=== PATIENT | female | born 2000 | race Caucasian/White ===

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

== ENCOUNTER 2022-04-09 15:27 | Emergency (ER) | payer MEDICAID, SELFPAY ==
[2022-04-09 15:36] VITALS: BP 127/62; PULSE 83; RESP 18; TEMP 36.2; O2SAT 100
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
[2022-04-09] MEDS: Acetaminophen 325 MG TAB 650 MG PO (16:28)
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
== END 2022-04-09 17:05 | disposition home or self-care (01) ==
PROVIDERS: Emergency Provider Registered Nurse Emergency
DX: S43.491A Other sprain of right shoulder joint, initial encounter (principal); V43.62XA Car passenger injured in collision with other type car in traffic accident, initial encounter
CPT/HCPCS: 81025; 99283; 73030

== ENCOUNTER 2022-05-28 08:37 | Emergency (ER) | payer MEDICAID, SELFPAY ==
--- NOTE | 2022-05-28 08:45 | ED.GENADUL_ITS ---
Discharge Plan Disposition Patient Disposition: HOME Condition: Stable Discharge Details Clinical Impression: Nausea and vomiting Primary Care Provider: None,None ED Provider: Ethel Rojo Home Meds and New Rx's Prescriptions: New metoclopramide HCl [Reglan] 10 mg tablet 10 mg PO Q6H PRN (Reason: nausea and vomiting) Qty: 7 1RF Discontinued ondansetron 4 mg tablet,disintegrating 4 mg PO Q6H PRN (Reason: nausea and vomiting) Qty: 10 0RF Discharge Instructions Instructions: Acute Nausea and Vomiting (ED) Additional Instructions: Your lab work today is reassuring and shows no evidence of acute concerning or significant findings. You will be notified if your urine sample is positive for a urinary tract infection. A prescription for Reglan has been sent electronically to your pharmacy to take as needed for nausea and vomiting. You were also given this medication upon discharge from the emergency department. Follow-up with your primary care doctor in 1 week. Return to the emergency department with any worsening or new concerning symptoms such as fever, persistent vomiting, persistent abdominal pain or any other concerns. 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 Admits to 1 episode of diarrhea. Admits to dysuria this morning. Denies fever or abdominal pain at this time. Vitals within normal limits. Patient appears comfortable and nontoxic. Urine test negative. Her abdomen is soft and nontender. Discussed with patient that we can place an IV and obtain screening labs but she declines. Patient is requesting only oral antiemetic. Discussed the risks of and disability due to missed or incomplete diagnoses and patient understands and demonstrates capacity make decisions. Will obtain urinalysis and give a dose of oral Phenergan and reassess with PO challenge. 0945 -- patient is endorsing persistent nausea and epigastric discomfort. She would like to proceed with an IV and labs at this time. We will give bolus IVF, IV Reglan, Pepcid, GI cocktail, screening labs and reassess. 1100 --labs reviewed. Anion gap 13.7. Repeat BMP obtained which improved and anion gap after IV fluids. Potassium 3.3 which was repleted. Urinalysis notes 5-10 WBCs with many epithelial cells with negative nitrite but with small leukocyte esterase and moderate bacteria. Patient was able to provide another urine sample but did not want to wait for results and sample again, appears contaminated but with no trace leukocyte esterase, 3-5 WBCs and unable to send culture. We will send with Phenergan p.o. as needed. She denies any abdominal pain. Advised to follow-up with her primary care doctor for reevaluation and to return here immediately if she develops any persistent vomiting or pain for re- evaluation and consideration for imaging if indicated. Medical Records Medical records reviewed: Yes I reviewed the patient's medical records. Lab Data Lab results reviewed: Yes I reviewed the patient's lab results. Labs: Laboratory Tests Range/Units 05/28/22 05/28/22 05/28/22 08:50 09:50 09:50 WBC (4.4-10.8) 10^3/uL 7.21 RBC (3.93-5.22) 10^6/uL 4.57 Hgb (11.2-15.7) g/dL 13.6 Hct (36.0-46.0) % 37.8 MCV (80-95) fL 83 MCH (27.0-33.0) pg 29.8 MCHC (32.0-36.0) % 36.0 RDW (11.7-14.6) % 11.8 Plt Count (130-400) 10^3/uL 272 MPV (8.0-11.0) fL 9.4 Immature Gran % 0.1 Neutrophils % 59.4 Lymphocytes % 31.6 Monocytes % 8.5 Eosinophils % 0.1 Basophils % 0.3 Nucleated RBC % (0.0-0.3) % 0.0 Absolute Neutrophils (1.2-6.7) 10^3/uL 4.28 Absolute Lymphocytes (1.2-3.4) 10^3/uL 2.28 Absolute Monocytes (0.1-0.8) 10^3/uL 0.61 Absolute Eosinophils (0.0-0.7) 10^3/uL 0.01 Absolute Basophils (0.0-0.2) 10^3/uL 0.02 Sodium (136-145) mmol/L 133 L Potassium (3.5-5.1) mmol/L 3.6 Chloride (98-107) mmol/L 95 L Carbon Dioxide (21.0-32.0) mmol/L 24.3 Anion Gap (3-11) mmol/L 13.7 H BUN (7-18) mg/dL 20 H Creatinine (0.55-1.02) mg/dL 0.8 Estimated GFR/1.73 m2 (mL/min/1.73m2) >= 60.00 Glucose (74-106) mg/dL 85 Calcium (8.5-10.1) mg/dL 9.3 Total Bilirubin (0.2-1.0) mg/dL 0.9 AST (15-37) U/L 23 ALT (14-59) U/L 27 Alkaline Phosphatase (46-116) U/L 73 Total Protein (6.4-8.2) g/dL 8.0 Albumin (3.4-5.0) g/dL 4.5 Lipase (73-393) U/L 85 Urine Color (Yellow) Yellow Urine Clarity (Clear) Sl Cloudy Urine pH (5-8) 6.0 Ur Specific [place] (1.005-1.025) >= 1.030 H Urine Protein (Negative) mg/dL Negative Urine Ketones (Negative) mg/dL 15 H Urine Blood (Negative) Negative Urine Nitrite (Negative) Negative Urine Bilirubin (Negative) Negative Urine Urobilinogen (Up TO 0.2) EU/dL 0.2 Ur Leukocyte Esterase (Negative) Small H Urine RBC (0-2) HPF 0-2 Urine WBC (0-5) HPF 5-10 Ur Epithelial Cells (Negative) HPF Many Urine Crystals (Negative) HPF Negative Urine Bacteria (Negative) HPF Moderate Urine Casts (Negative) LPF Negative Urine Mucus (Negative) Trace Ur Culture Indicated? No/Sq. Contamination Urine Glucose (Negative) mg/dL Negative Range/Units 05/28/22 05/28/22 10:58 11:35 WBC (4.4-10.8) 10^3/uL RBC (3.93-5.22) 10^6/uL Hgb (11.2-15.7) g/dL Hct (36.0-46.0) % MCV (80-95) fL MCH (27.0-33.0) pg MCHC (32.0-36.0) % RDW (11.7-14.6) % Plt Count (130-400) 10^3/uL MPV (8.0-11.0) fL Immature Gran % Neutrophils % Lymphocytes % Monocytes % Eosinophils % Basophils % Nucleated RBC % (0.0-0.3) % Absolute Neutrophils (1.2-6.7) 10^3/uL Absolute Lymphocytes (1.2-3.4) 10^3/uL Absolute Monocytes (0.1-0.8) 10^3/uL Absolute Eosinophils (0.0-0.7) 10^3/uL Absolute Basophils (0.0-0.2) 10^3/uL Sodium (136-145) mmol/L 134 L Potassium (3.5-5.1) mmol/L 3.3 L Chloride (98-107) mmol/L 98 Carbon Dioxide (21.0-32.0) mmol/L 24.4 Anion Gap (3-11) mmol/L 11.6 H BUN (7-18) mg/dL 19 H Creatinine (0.55-1.02) mg/dL 0.8 Estimated GFR/1.73 m2 (mL/min/1.73m2) >= 60.00 Glucose (74-106) mg/dL 86 Calcium (8.5-10.1) mg/dL 8.4 L Total Bilirubin (0.2-1.0) mg/dL AST (15-37) U/L ALT (14-59) U/L Alkaline Phosphatase (46-116) U/L Total Protein (6.4-8.2) g/dL Albumin (3.4-5.0) g/dL Lipase (73-393) U/L Urine Color (Yellow) Yellow Urine Clarity (Clear) Sl Cloudy Urine pH (5-8) 6.0 Ur Specific [place] (1.005-1.025) 1.015 Urine Protein (Negative) mg/dL Negative Urine Ketones (Negative) mg/dL Trace H Urine Blood (Negative) Negative Urine Nitrite (Negative) Negative Urine Bilirubin (Negative) Negative Urine Urobilinogen (Up TO 0.2) EU/dL 0.2 Ur Leukocyte Esterase (Negative) Trace H Urine RBC (0-2) HPF 0-2 Urine WBC (0-5) HPF 3-5 Ur Epithelial Cells (Negative) HPF Many Urine Crystals (Negative) HPF Negative Urine Bacteria (Negative) HPF Few Urine Casts (Negative) LPF Negative Urine Mucus (Negative) Negative Ur Culture Indicated? No/Sq. Contamination Urine Glucose (Negative) mg/dL Negative HPI General Mode of arrival: ambulatory . Date/Time Provider Initiated Documentation: 05/28/22 08:43 . Limitations to Documentation: no limitations . Information obtained by: patient . HPI Narrative: Patient is a 21-year-old female with history of methadone dependence, and anxiety who presents for nausea and vomiting for the past 3 days after eating eggs and [place] toast. Patient states she initially vomited food but has been vomiting mainly bile to 5 times daily since then. She admits to diarrhea a few days ago but has not had a bowel movement since then. She does admit to dysuria this morning but denies any hematuria, frequency or urgency. She admits to occasional abdominal pain but denies any at present. She denies fever, chest pain, shortness of breath, recent antibiotics, recent travel or recent known sick contacts. She states she last took her methadone this morning. She states she had previously been on Suboxone but switched to methadone a couple months ago. She denies any history of IV drug abuse. Related Data Home Medications Medication Instructions Recorded Confirmed metoclopramide HCl 10 mg tablet 10 mg PO Q6H PRN nausea and 05/28/22 (Reglan) vomiting #7 tabs Previous Rx's Medication Instructions Recorded metoclopramide HCl 10 mg tablet 10 mg PO Q6H PRN nausea and 05/28/22 (Reglan) vomiting #7 tabs Allergies Allergy/AdvReac Type Severity Reaction Status Date / Time No Known Allergies Allergy Unverified 05/28/22 08:55 General Stated Complaint: Nausea/Vomit/Diar FABIÁN: 4 Review of Systems All systems reviewed & are unremarkable except as noted in HPI and below Constitutional Constitutional: Denies chills, Denies excessive sweating, Denies fatigue, Denies fever(s), Denies weakness and Denies weight loss Eyes Eyes: Reports system reviewed and no additional complaints, except as documented and Denies blurry vision ENT Ears, Nose, Mouth, and Throat: Denies vertigo, Denies dizziness, Denies otalgia, Denies nasal congestion, Denies sore throat and Denies throat swelling Cardiovascular Cardiovascular: Denies chest pain, Denies syncope, Denies rapid heart rate and Denies dyspnea Respiratory Respiratory: Denies chest congestion, Denies cough, Denies pain on inspiration and Denies dyspnea Gastrointestinal Gastrointestinal: Denies abdominal pain, Reports diarrhea (one episode a few days ago), Reports nausea and Reports vomiting Genitourinary Genitourinary: Denies hematuria, Denies dysuria and Denies flank pain Musculoskeletal Musculoskeletal: Denies back pain and Denies joint swelling Integumentary/Breasts Skin/Breast: Denies lesions and Denies rash Neurologic Neurologic: Denies behavioral changes, Denies confusion, Denies vertigo, Denies dizziness, Denies syncope, Denies localized weakness and Denies weakness Psychiatric Psychiatric: Denies behavioral changes, Denies confusion and Denies depression Endocrine Endocrine: Denies excessive sweating and Denies fatigue Hematologic/Lymphatic Hematologic/Lymphatic: Denies easy bruising and Denies lymphadenopathy Allergic/Immunologic Allergic/Immunologic: Denies throat swelling PFSH All Active Problems (Updated 05/28/22 @ 11:47 by Ethel Rojo DO) Nausea and vomiting (Acute) Acute streptococcal pharyngitis (Acute) Acute vomiting (Acute) Cephalgia (Acute) Myalgia (Acute) Cyclical vomiting with nausea (Acute) Hypokalemia (Acute) Anxiety (Chronic) Medical History (Updated 05/28/22 @ 11:47 by Ethel Rojo DO) Anxiety Narcotic abuse in remission Surgical History No significant past surgical history Social History Smoking/Tobacco Use Status: Current every day Tobacco Type: e-cigarettes Smoking risk assessment performed?: Yes Alcohol Intake: current Alcohol Intake frequency: holidays/special occasions only Alcohol type: beer Drug use: Daily Substance use type: marijuana and other Details: vapes THC , gets her own methadone and self medicates , she denies other street drugs Do you feel safe at home: Yes Do you feel safe in your relationship?: Yes History History 1 Para 1 Hx # Term Pregnancies Multiple births Hx # Pregnancies Ectopic pregnancies AB induced Hx Number of Living Children AB spontaneous Exam Const General: cooperative and healthy appearing Orientation: alert, awake and oriented x3 HENMT Head: normal to inspection Ears: hearing grossly normal bilaterally and external ears normal General nose exam: external nose normal Face and sinus: normal facial exam Mouth: oral mucosae normal Teeth and gingiva: dentition normal Throat: posterior oropharynx normal Eyes General: appearance normal, both eyes and all related structures Eyelids: eyelids normal Pupils: PERRL EOM: EOM intact bilaterally Neck Neck: normal visual inspection Lymphatic: no lymphadenopathy noted Chest Chest: normal inspection of the chest Resp Effort & Inspection: normal respiratory effort and able to speak in complete s entences Auscultation: clear to auscultation bilaterally Cardio Rate: regular rate Rhythm: regular rhythm GI Inspection: normal to inspection Palpation: soft, not firm, no guarding, no hepatosplenomegaly, no masses and nontender Auscultation: normal bowel sounds Back/Spine/Pelvis Back: no CVA tenderness Skin General skin exam: no rashes or lesions noted Neuro General: patient alert and patient awake Cognition: normal cognition Speech: speech normal Gait: normal gait Motor: muscle tone normal throughout Sensory Exam: no sensory deficits noted Extrem General: normal to inspection, full ROM and capillary refill normal Psych Appearance: grossly normal Mental Status: mental status grossly normal Speech and Movement: speech and movement normal Affect: normal affect Thought Process: normal
[2022-05-28 08:51] VITALS: BP 128/87; PULSE 77; RESP 18; TEMP 36.7; O2SAT 98
[2022-05-28] MEDS: Promethazine 25 MG TAB PO (09:10)
[2022-05-28 09:35] LABS: Bilirubin Negative (Negative); Blood Negative (Negative); Clarity Sl Cloudy (Clear); Glucose Negative (Negative); Ketones 15 mg/dL (Negative); Leukocyte Esterase Small (Negative); Nitrite Negative (Negative); Specific Gravity >= 1.030 (1.005-1.025); Urobilinogen 0.2 EU/dL (Up TO 0.2)
[2022-05-28 09:51] LABS: Epithelial Cells Many HPF (Negative); RBC 0-2 HPF (0-2)
[2022-05-28 09:52] LABS: Bacteria Moderate HPF (Negative); C & S Indicated? No/Sq. Contamination; Casts Negative LPF (Negative); Crystals Negative HPF (Negative); Mucus Trace (Negative)
[2022-05-28 10:00] LABS: Abs Immature Grans 0.01 10^3/uL (0.0-0.06); Absolute Basophil Count 0.02 10^3/uL (0.0-0.2); Absolute Eosinophil Count 0.01 10^3/uL (0.0-0.7); Absolute Lymphocyte Count 2.28 10^3/uL (1.2-3.4); Absolute Monocyte Count 0.61 10^3/uL (0.1-0.8); Absolute Neutrophil Count 4.28 10^3/uL (1.2-6.7); Basophils % 0.3; Eosinophils % 0.1; HCT 37.8 % (36.0-46.0); HGB 13.6 g/dL (11.2-15.7); Immature Grans % 0.1; Lymphocytes % 31.6; MCH 29.8 pg (27.0-33.0); MCV 83 fL (80-95); MPV 9.4 fL (8.0-11.0); Monocytes % 8.5; Neutrophils % 59.4; Platelet Count 272 10^3/uL (130-400); RBC 4.57 10^6/uL (3.93-5.22); RDW 11.8 % (11.7-14.6); RDW-SD 35.3 fL; WBC 7.21 10^3/uL (4.4-10.8)
[2022-05-28] MEDS: Famotidine 20 MG/2 ML VIAL IVP (10:00)
[2022-05-28] MEDS: Metoclopramide 10 MG/2 ML VIAL IVP (10:00)
[2022-05-28] MEDS: Normal Saline 1,000 ML 1000 ML IV (10:00)
[2022-05-28 10:17] LABS: ALT 27 U/L (14-59); AST 23 U/L (15-37); Albumin 4.5 g/dL (3.4-5.0); Alkaline Phosphatase 73 U/L (46-116); Anion Gap 13.7 mmol/L (3-11); BUN 20 mg/dL (7-18); Bilirubin, Total 0.9 mg/dL (0.2-1.0); CO2 24.3 mmol/L (21.0-32.0); CREATININE 0.8 mg/dL (0.55-1.02); Calcium 9.3 mg/dL (8.5-10.1); Chloride 95 mmol/L (98-107); Glucose 85 mg/dL (74-106); Lipase 85 U/L (73-393); Potassium 3.6 mmol/L (3.5-5.1); Sodium 133 mmol/L (136-145)
[2022-05-28 11:12] LABS: Anion Gap 11.6 mmol/L (3-11); BUN 19 mg/dL (7-18); CO2 24.4 mmol/L (21.0-32.0); CREATININE 0.8 mg/dL (0.55-1.02); Calcium 8.4 mg/dL (8.5-10.1); Chloride 98 mmol/L (98-107); Glucose 86 mg/dL (74-106); Potassium 3.3 mmol/L (3.5-5.1); Sodium 134 mmol/L (136-145)
[2022-05-28] MEDS: Potassium Chloride 20 MEQ TABCR PO (11:35)
[2022-05-28 11:51] LABS: Bilirubin Negative (Negative); Blood Negative (Negative); Clarity Sl Cloudy (Clear); Glucose Negative (Negative); Ketones Trace mg/dL (Negative); Leukocyte Esterase Trace (Negative); Nitrite Negative (Negative); Specific Gravity 1.015 (1.005-1.025); Urobilinogen 0.2 EU/dL (Up TO 0.2)
[2022-05-28] MEDS: Metoclopramide 10 MG TAB 20 MG PO (11:57)
[2022-05-28 12:01] LABS: Bacteria Few HPF (Negative); C & S Indicated? No/Sq. Contamination; Casts Negative LPF (Negative); Crystals Negative HPF (Negative); Epithelial Cells Many HPF (Negative); Mucus Negative (Negative); RBC 0-2 HPF (0-2)
== END 2022-05-28 11:57 | disposition home or self-care (01) ==
PROVIDERS: Emergency Provider Physician Assistant
DX: R11.2 Nausea with vomiting, unspecified (principal); R19.7 Diarrhea, unspecified; R30.0 Dysuria; R10.13 Epigastric pain; R82.998 Other abnormal findings in urine; F17.290 Nicotine dependence, other tobacco product, uncomplicated
CPT/HCPCS: 36415; 80048; 80053; 81025; 83690; 96361; 96374; 96375; 99284; 81003; 81015; 85025; J2765

== ENCOUNTER 2022-05-29 15:13 | Outpatient (REF) | payer MEDICAID, SELFPAY | END 2022-05-29 15:14 | disposition home or self-care (01) | LOC: LBN 15:13 | PROVIDERS: Visit Provider Nurse Practitioner Family | DX: R10.9 Unspecified abdominal pain (principal) | CPT/HCPCS: 87491; 87591; 87086 ==

== ENCOUNTER 2022-10-22 10:50 | Emergency (ER) | payer MEDICAID, SELFPAY ==
[2022-10-22] VITALS (10 sets, daily range): BP systolic 136–159; BP diastolic 75–104; PULSE 63–87; RESP 16–18; TEMP 36.7; O2SAT 96–100
--- NOTE | 2022-10-22 11:18 | ED.GENADUL_ITS ---
Discharge Plan Disposition Patient Disposition: Home Condition: Stable Discharge Details Clinical Impression: Nausea and vomiting, Anxiety, Acute hypokalemia Primary Care Provider: None,None ED Provider: Kennedy Roberts Home Meds and New Rx's Prescriptions: Continued metoclopramide HCl [Reglan] 10 mg tablet 10 mg PO Q6H PRN (Reason: nausea and vomiting) Qty: 20 1RF Discharge Instructions Instructions: Metoclopramide (By mouth), Hypokalemia (ED), Acute Nausea and Vomiting (ED), Anxiety (ED) Discharge Data Discharge Date/Time-TO BE ENTERED AT DEPARTURE: 10/22/22 16:35 Medical Decision Making 1120 ---22 year-old female with history of opioid use disorder, on methadone, here with nausea and vomiting and associated anxiety. On chart review, patient has had multiple ED visits for nausea and vomiting. There has been concern for cannabinoid hyperemesis syndrome in the past. Patient continues to use marijuana regularly. She appears dehydrated. I will give IV fluid bolus. Consider biliary disease and will check LFTs as well as electrolyte abnormalities. I am concerned about cannabinoid hyperemesis syndrome. I did explain this concern to the patient. 1600 --labs reviewed and hypokalemia noted. Patient received potassium chloride 20 mill equivalents IV and 20 mill equivalents by mouth. Patient was given Zofran and also treated with capsaicin. Sign Out No HPI General Mode of arrival: ambulatory . Date/Time Provider Initiated Documentation: 10/22/22 10:59 . Limitations to Documentation: no limitations . Information obtained by: patient . HPI Narrative: 22-year-old female with history of opioid use disorder, on methadone, here with chief complaint of vomiting. Patient notes nausea and vomiting for the past 3 days. Symptoms seem to improve yesterday and then worsened today. Nausea is now severe. She does not notes she is not able to keep anything down. No associated abdominal pain. Related Data Home Medications Medication Instructions Recorded Confirmed metoclopramide HCl 10 mg tablet 10 mg PO Q6H PRN nausea and 10/22/22 (Reglan) vomiting #20 tabs Previous Rx's Medication Instructions Recorded metoclopramide HCl 10 mg tablet 10 mg PO Q6H PRN nausea and 10/22/22 (Reglan) vomiting #20 tabs Allergies Allergy/AdvReac Type Severity Reaction Status Date / Time No Known Allergies Allergy Unverified 05/28/22 08:55 General Stated Complaint: Nausea/Vomit/Diar FABIÁN: 3 PFSH All Active Problems (Updated 10/22/22 @ 16:28 by Kennedy Roberts MD) Nausea and vomiting (Acute) Anxiety (Chronic) Acute hypokalemia (Acute) Acute streptococcal pharyngitis (Acute) Acute vomiting (Acute) Cephalgia (Acute) Myalgia (Acute) Cyclical vomiting with nausea (Acute) Hypokalemia (Acute) Anxiety (Chronic) Medical History (Updated 10/22/22 @ 16:28 by Kennedy Roberts MD) Anxiety Narcotic abuse in remission Surgical History No significant past surgical history Social History Smoking/Tobacco Use Status: Current every day Tobacco Type: e-cigarettes Smoking risk assessment performed?: Yes Alcohol Intake: current Alcohol Intake frequency: holidays/special occasions only Alcohol type: beer Drug use: Daily Substance use type: marijuana and other Details: vapes THC , gets her own methadone and self medicates , she denies other street drugs Do you feel safe at home: Yes Do you feel safe in your relationship?: Yes History History 1 Para 1 Hx # Term Pregnancies Multiple births Hx # Pregnancies Ectopic pregnancies AB induced Hx Number of Living Children AB spontaneous Course Vital Signs Vital signs: Vital Signs Temperature 36.7 C 10/22/22 10:57 Pulse 67 10/22/22 10:57 Respiratory Rate 18 10/22/22 10:57 Blood Pressure 151/104 H 10/22/22 10:57 Pulse Oximetry 100 10/22/22 10:57 Temperature 36.7 C 10/22/22 10:57 Temperature Source Oral 10/22/22 10:57 Pulse 67 10/22/22 10:57 Respiratory Rate 18 10/22/22 10:57 Blood Pressure 151/104 H 10/22/22 10:57 Blood Pressure Position Sitting 10/22/22 10:57 Pulse Oximetry 100 10/22/22 10:57 Oxygen Delivery Method Room Air 10/22/22 10:57 Oxygen Flow Rate 0 10/22/22 10:57
[2022-10-22] MEDS: Lactated Ringers 1,000 ML 1000 ML IV (11:33)
[2022-10-22] MEDS: LORazepam 2 MG/ML VIAL 0.5 MG IVP (11:33)
[2022-10-22] MEDS: Metoclopramide 10 MG/2 ML VIAL IVP (11:34)
[2022-10-22 11:43] LABS: Abs Immature Grans 0.02 10^3/uL (0.0-0.06); Absolute Basophil Count 0.05 10^3/uL (0.0-0.2); Absolute Eosinophil Count 0.09 10^3/uL (0.0-0.7); Absolute Neutrophil Count 3.99 10^3/uL (1.2-6.7); Basophils % 0.6; Eosinophils % 1.1; HGB 13.7 g/dL (11.2-15.7); Immature Grans % 0.2; Lymphocytes % 41.2; MCH 27.8 pg (27.0-33.0); MCHC 32.6 % (32.0-36.0); MCV 85 fL (80-95); MPV 9.5 fL (8.0-11.0); Monocytes % 8.5; Neutrophils % 48.4; Platelet Count 417 10^3/uL (130-400); RBC 4.92 10^6/uL (3.93-5.22); RDW 12.4 % (11.7-14.6); RDW-SD 38.6 fL; WBC 8.25 10^3/uL (4.4-10.8)
[2022-10-22 11:55] LABS: ALT 28 U/L (14-59); AST 29 U/L (15-37); Albumin 4.7 g/dL (3.4-5.0); Alkaline Phosphatase 107 U/L (46-116); Anion Gap 14.4 mmol/L (3-11); BUN 14 mg/dL (7-18); Bilirubin, Total 0.4 mg/dL (0.2-1.0); CO2 25.6 mmol/L (21.0-32.0); CREATININE 1.2 mg/dL (0.55-1.02); Calcium 9.7 mg/dL (8.5-10.1); Chloride 99 mmol/L (98-107); Estimated GFR 66.46 (mL/min/1.73m2); Glucose 132 mg/dL (74-106); Total Protein 8.8 g/dL (6.4-8.2)
[2022-10-22 12:00] LABS: HCG Qual (Serum) Negative
[2022-10-22 12:04] LABS: Sodium 139 mmol/L (136-145)
[2022-10-22] MEDS: Potassium Chloride 20 MEQ TABCR PO (12:36)
[2022-10-22] MEDS: POTASSIUM CHLORIDE 20 MEQ/100 ML BAG 50 MEQ IVPB (12:36)
--- NOTE | 2022-10-22 14:45 | RT.EKG_ITS ---
APPROVED REPORT Exam: Resting ECG Reason for Exam: medication, assess for long qt Patient Location: E HR:69 bpm ECG Measurements Heart Rate 69 AXIS ND 144 P 19 QRSd 92 QRS 69 QT 413 T 62 QTc 443 Conclusion Sinus rhythm...normal P axis, V-rate 60- 99
[2022-10-22] MEDS: Ondansetron 4 MG/2 ML VIAL IVP (15:08)
== END 2022-10-22 16:35 | disposition home or self-care (01) ==
PROVIDERS: Emergency Provider Student in an Organized Health Care Education/Training Program
DX: R11.2 Nausea with vomiting, unspecified (principal); F41.9 Anxiety disorder, unspecified; E87.6 Hypokalemia; F12.90 Cannabis use, unspecified, uncomplicated
CPT/HCPCS: 80053; 93005; 96361; 96365; 96366; 96375; 99284; 83735; 84703; 85025; 93010; 99283; J2060; J2405; J2765; J3480

== ENCOUNTER 2022-12-12 06:23 | Emergency (ER) | payer MEDICAID, SELFPAY ==
[2022-12-12 06:28] VITALS: BP 135/60; PULSE 61; RESP 12; TEMP 36.6; O2SAT 96
--- NOTE | 2022-12-12 07:02 | ED.GENADUL_ITS ---
Discharge Plan Discharge Details Chief Complaint: Nausea/Vomit/Diar Primary Care Provider: None,None ED Provider: Michael Morrissey Home Meds and New Rx's Prescriptions: No Action methadone 5 mg/5 mL Syringe 65 mg PO DAILY Medical Decision Making 22-year-old female history of substance abuse currently on methadone program presents with nausea and vomiting over the past 3 days. Afebrile nontoxic hemodynamically stable. Abdomen soft nontender nondistended. No active vomiting. Consider viral enteritis versus colitis versus less likely opiate withdrawal given no lacrimation yawning or diarrhea, patient has no urinary symptoms however must consider occult UTI, will also assess for . Will obtain basic labs, lipase, fluids and antiemetics. Disposition pending reassessment of symptoms and results. HPI General Date/Time Provider Initiated Documentation: 12/12/22 06:32 . HPI Narrative: 22-year-old female history of substance abuse currently on methadone program presents with nausea vomiting for the past 3 days, had normal bowel meant 3 days ago became acutely nauseous and has been vomiting intermittently since then. Feels dehydrated. Denies urinary symptoms. Denies diarrhea. Recent sick contacts her uncle Related Data Home Medications Medication Instructions Recorded Confirmed methadone 5 mg/5 mL oral syringe 65 mg PO DAILY 12/12/22 12/12/22 (FOR ORAL USE ONLY) Allergies Allergy/AdvReac Type Severity Reaction Status Date / Time No Known Allergies Allergy Unverified 05/28/22 08:55 General Stated Complaint: Nausea/Vomit/Diar FABIÁN: 3 Review of Systems Narrative: Review of Systems Constitutional: negative Eyes: negative ENT: negative Cardiovascular: negative Respiratory: negative Gastrointestinal: Nausea, vomiting : negative Musculoskeletal: negative Skin: negative Neurologic: negative Psych: negative PFSH All Active Problems (Updated 11/22/22 @ 00:05 by SWATI SERRANO) Acute streptococcal pharyngitis (Acute) Acute vomiting (Acute) Cephalgia (Acute) Myalgia (Acute) Cyclical vomiting with nausea (Acute) Hypokalemia (Acute) Anxiety (Chronic) Medical History (Updated 11/22/22 @ 00:05 by SWATI SERRANO) Anxiety Narcotic abuse in remission Surgical History No significant past surgical history Social History Smoking/Tobacco Use Status: Current every day Tobacco Type: e-cigarettes Smoking risk assessment performed?: Yes Alcohol Intake: current Alcohol Intake frequency: holidays/special occasions only Alcohol type: beer Drug use: Daily Substance use type: marijuana and other Details: vapes THC , gets her own methadone and self medicates , she denies other street drugs Do you feel safe at home: Yes Do you feel safe in your relationship?: Yes History History 1 Para 1 Hx # Term Pregnancies Multiple births Hx # Pregnancies Ectopic pregnancies AB induced Hx Number of Living Children AB spontaneous Exam Narrative Exam Narrative: Physical Examination General: alert, awake, cooperative, resting comfortably, no acute distress HEENT: normocephalic, atraumatic; PERRL, EOM intact, conjunctiva normal; no nasal discharge; moist mucous membranes, oral and pharyngeal mucosa normal, tolerating secretions Neck: supple, trachea midline; full ROM Chest: normal to inspection Respiratory: normal respiratory effort, speaking in full sentences, clear to auscultation, no wheezing, rales or rhonchi Cardiac: regular rate, regular rhythm, S1S2 intact, no murmurs rubs or gallops GI: abdomen soft, non-tender, non-distended; no palpable mass or hepatosplenomegaly Skin: no lesions, rashes or trauma appreciated Neuro: AAOx3, normal speech, moving all extremities Psych: Appropriate mood and affect Course Vital Signs Vital signs: Vital Signs Temperature 36.6 C 12/12/22 06:28 Pulse 61 12/12/22 06:28 Respiratory Rate 12 12/12/22 06:28 Blood Pressure 135/60 12/12/22 06:28 Pulse Oximetry 96 12/12/22 06:28 Temperature 36.6 C 12/12/22 06:28 Temperature Source Temporal Artery Scan 12/12/22 06:28 Pulse 61 12/12/22 06:28 Respiratory Rate 12 12/12/22 06:28 Respiratory Effort Non-Labored 12/12/22 06:31 Blood Pressure 135/60 12/12/22 06:28 Blood Pressure Position Sitting 12/12/22 06:28 Pulse Oximetry 96 12/12/22 06:28 Oxygen Delivery Method Room Air 12/12/22 06:28 Oxygen Flow Rate 0 12/12/22 06:28 Pain Level 8 12/12/22 06:28
[2022-12-12] MEDS: Ondansetron 4 MG/2 ML VIAL IVP (07:15)
[2022-12-12] MEDS: Normal Saline 1,000 ML 1000 ML IV (07:15)
[2022-12-12 08:27] LABS: Abs Immature Grans 0.06 10^3/uL (0.0-0.06); Absolute Basophil Count 0.02 10^3/uL (0.0-0.2); Absolute Lymphocyte Count 2.04 10^3/uL (1.2-3.4); Absolute Monocyte Count 0.62 10^3/uL (0.1-0.8); Absolute Neutrophil Count 8.97 10^3/uL (1.2-6.7); Basophils % 0.2; HCT 37.9 % (36.0-46.0); HGB 12.9 g/dL (11.2-15.7); Immature Grans % 0.5; Lymphocytes % 17.4; MCH 28.6 pg (27.0-33.0); MCV 84 fL (80-95); MPV 9.8 fL (8.0-11.0); Monocytes % 5.3; Neutrophils % 76.6; Platelet Count 445 10^3/uL (130-400); RBC 4.51 10^6/uL (3.93-5.22); RDW-SD 39.7 fL; WBC 11.71 10^3/uL (4.4-10.8)
[2022-12-12 08:39] LABS: Bilirubin Negative (Negative); Blood Trace-intact (Negative); Clarity Clear (Clear); Glucose Negative (Negative); Ketones 15 mg/dL (Negative); Leukocyte Esterase Negative (Negative); Nitrite Negative (Negative); Specific Gravity 1.025 (1.005-1.025); Urobilinogen 0.2 EU/dL (Up TO 0.2)
[2022-12-12 08:47] LABS: ALT 29 U/L (14-59); AST 37 U/L (15-37); Albumin 5.1 g/dL (3.4-5.0); Alkaline Phosphatase 109 U/L (46-116); Anion Gap 13.6 mmol/L (3-11); BUN 12 mg/dL (7-18); Bilirubin, Total 0.4 mg/dL (0.2-1.0); CO2 24.4 mmol/L (21.0-32.0); CREATININE 0.9 mg/dL (0.55-1.02); Chloride 100 mmol/L (98-107); Estimated GFR 93.86 (mL/min/1.73m2); Glucose 114 mg/dL (74-106); Lipase 67 U/L (73-393); Sodium 138 mmol/L (136-145); Total Protein 8.8 g/dL (6.4-8.2)
[2022-12-12 08:47] LABS: Bacteria Negative HPF (Negative); C & S Indicated? No; Casts Negative LPF (Negative); Crystals Negative HPF (Negative); Epithelial Cells Few HPF (Negative); Mucus Moderate (Negative); WBC Negative HPF (0-5)
--- NOTE | 2022-12-12 08:54 | W.EDPROG ---
Date of service: 12/12/22 Time of Service: 08:55 Medical Decision Making Received signout from Dr. Morrissey. Please see his note regarding the initial presentation, exam and plan of care. Patient improved. She is not and her labs are reassuring. Discussed with her the sparing use of Zofran if needed for ongoing nausea. She will follow-up with the local clinic for her methadone dosing. She is stable for discharge. Sign Out Sign Out Data: Sign Out Comment: N/V, on methadone; pending labs, UA, Upreg, fluids and zofran; likely home (viral, no signs of withdrawal) Last updated by Michael Morrissey MD at 12/12/22 07:47 Discharge Plan Disposition Patient Disposition: Home Condition: Improving Discharge Details Chief Complaint: Nausea/Vomit/Diar Clinical Impression: Gastroenteritis Primary Care Provider: None,None ED Provider: Deandre Moss Home Meds and New Rx's Prescriptions: No Action methadone 5 mg/5 mL Syringe 65 mg PO DAILY Discharge Instructions Instructions: Gastroenteritis (ED) Additional Instructions: Small, frequent sips of fluids to maintain hydration. May use the provided Zofran/ondansetron sparingly once or twice daily if needed for persistent nausea. Return to the emergency department for any acute concern.
[2022-12-12 09:11] VITALS: BP 114/77; PULSE 73; TEMP 37; O2SAT 98
[2022-12-12] MEDS: Ondansetron O.D.T. 4 MG TABEF, 3 TABS/BTL PO (09:11)
== END 2022-12-12 09:13 | disposition home or self-care (01) ==
PROVIDERS: Emergency Medicine; Emergency Provider Emergency Medicine
DX: K52.9 Noninfective gastroenteritis and colitis, unspecified (principal)
CPT/HCPCS: 80053; 83690; 96361; 96374; 99284; 81003; 81015; 85025; J2405

== ENCOUNTER 2022-12-13 19:29 | Outpatient (REF) | payer MEDICAID, SELFPAY ==
[2022-12-13 21:39] LABS: Abs Immature Grans 0.03 10^3/uL (0.0-0.06); Absolute Basophil Count 0.01 10^3/uL (0.0-0.2); Absolute Lymphocyte Count 1.56 10^3/uL (1.2-3.4); Absolute Monocyte Count 0.44 10^3/uL (0.1-0.8); Absolute Neutrophil Count 6.85 10^3/uL (1.2-6.7); Basophils % 0.1; HCT 37.1 % (36.0-46.0); HGB 12.7 g/dL (11.2-15.7); Immature Grans % 0.3; Lymphocytes % 17.5; MCH 28.3 pg (27.0-33.0); MCHC 34.2 % (32.0-36.0); MCV 83 fL (80-95); MPV 9.6 fL (8.0-11.0); Monocytes % 4.9; Neutrophils % 77.2; Platelet Count 370 10^3/uL (130-400); RBC 4.49 10^6/uL (3.93-5.22); RDW 12.1 % (11.7-14.6); WBC 8.89 10^3/uL (4.4-10.8)
[2022-12-13 22:03] LABS: AST 26 U/L (15-37); BUN 15 mg/dL (7-18); Chloride 100 mmol/L (98-107); Glucose 94 mg/dL (74-106); Potassium 3.9 mmol/L (3.5-5.1); Total Protein 8.2 g/dL (6.4-8.2)
[2022-12-13 22:54] LABS: ALT 27 U/L (14-59); Albumin 4.9 g/dL (3.4-5.0); Alkaline Phosphatase 98 U/L (46-116); Bilirubin, Total 0.6 mg/dL (0.2-1.0); CREATININE 0.9 mg/dL (0.55-1.02); Calcium 9.9 mg/dL (8.5-10.1); Estimated GFR 93.86 (mL/min/1.73m2); Lipase 67 U/L (73-393); Sodium 137 mmol/L (136-145)
== END 2022-12-13 19:30 | disposition home or self-care (01) ==
LOC: LBN 19:29
PROVIDERS: Visit Provider Physician Assistant Medical
DX: E86.0 Dehydration (principal); R11.10 Vomiting, unspecified
CPT/HCPCS: 80053; 83690; 85025

== ENCOUNTER 2023-04-13 08:41 | Emergency (ER) | payer MEDICAID, SELFPAY ==
[2023-04-13 08:45] VITALS: BP 150/95; PULSE 57; RESP 15; TEMP 36.3; O2SAT 100
[2023-04-13] MEDS: diphenhydrAMINE 50 MG/ML VIAL (09:19)
[2023-04-13] MEDS: Prochlorperazine 10 MG/2 ML VIAL (09:20)
[2023-04-13] MEDS: Lactated Ringers 1,000 ML 1000 ML IV (09:25)
[2023-04-13 09:39] LABS: Abs Immature Grans 0.04 10^3/uL (0.0-0.06); Absolute Basophil Count 0.03 10^3/uL (0.0-0.2); Absolute Eosinophil Count 0.01 10^3/uL (0.0-0.7); Absolute Lymphocyte Count 2.24 10^3/uL (1.2-3.4); Absolute Monocyte Count 0.72 10^3/uL (0.1-0.8); Absolute Neutrophil Count 9.66 10^3/uL (1.2-6.7); Basophils % 0.2; Eosinophils % 0.1; HCT 40.9 % (36.0-46.0); HGB 14.2 g/dL (11.2-15.7); Immature Grans % 0.3; Lymphocytes % 17.6; MCH 29.6 pg (27.0-33.0); MCHC 34.7 % (32.0-36.0); MCV 85 fL (80-95); MPV 9.5 fL (8.0-11.0); Monocytes % 5.7; Neutrophils % 76.1; Platelet Count 360 10^3/uL (130-400); RBC 4.79 10^6/uL (3.93-5.22); RDW 13.2 % (11.7-14.6)
[2023-04-13 09:58] LABS: ALT 37 U/L (14-59); AST 32 U/L (15-37); Albumin 5.1 g/dL (3.4-5.0); Alkaline Phosphatase 87 U/L (46-116); Anion Gap 11.3 mmol/L (3-11); BUN 18 mg/dL (7-18); Bilirubin, Total 0.7 mg/dL (0.2-1.0); CO2 27.7 mmol/L (21.0-32.0); CREATININE 1.1 mg/dL (0.55-1.02); Calcium 9.6 mg/dL (8.5-10.1); Chloride 99 mmol/L (98-107); Estimated GFR 73.77 (mL/min/1.73m2); Glucose 112 mg/dL (74-106); Lipase 21 U/L (16-77); Potassium 3.3 mmol/L (3.5-5.1); Sodium 138 mmol/L (136-145); Total Protein 8.8 g/dL (6.4-8.2)
[2023-04-13 10:06] LABS: HCG Qual (Serum) Negative
[2023-04-13] MEDS: Ondansetron 4 MG/2 ML VIAL IVP (10:26)
[2023-04-13 10:49] VITALS: PULSE 80; RESP 18; O2SAT 98
--- NOTE | 2023-04-13 14:14 | ED.GENADUL_ITS ---
Discharge Plan Disposition Patient Disposition: Home Discharge Details Clinical Impression: Nausea & vomiting Primary Care Provider: None,None ED Provider: Shasta Diego Home Meds and New Rx's Prescriptions: New prochlorperazine maleate [Compazine] 10 mg tablet 10 mg PO Q6H PRNQty: 10 0RF Continued methadone 5 mg/5 mL Syringe 65 mg PO DAILY Discharge Instructions Instructions: Acute Nausea and Vomiting (ED) Additional Instructions: Take the Compazine as needed for nausea and vomiting Try to cut down on your marijuana use Increase fluid hydration, Gatorade, popsicles Discharge Data Discharge Date/Time-TO BE ENTERED AT DEPARTURE: 04/13/23 13:32 Medical Decision Making 22-year-old female presents with anxiety and vomiting for the past 3 days, secondary to her presenting complaints, labs were ordered potassium she needs no she should probably be on a monitor but if she is going quickly scanned his chart I just I think think she needs to go on the monitor after like when you are getting set up she potassium is mildly low at 3.3, she will take supplementation She is feeling improvement with her nausea and vomiting and is asking to be discharged to go get her methadone dose, she feels improved at this time She is in no acute distress at time of reassessment Return precautions reviewed and patient expressed understanding Received antiemetics, IV fluid hydration Medical Records Medical records reviewed: Yes I reviewed the patient's medical records. Lab Data Lab results reviewed: Yes I reviewed the patient's lab results. HPI General Date/Time Provider Initiated Documentation: 04/13/23 08:58 . HPI Narrative: Patient reports anxiety and vomiting for the past 3 days. She has a history of cyclic vomiting syndrome and does endorse daily marijuana use. She is also taking methadone for history of opiate addiction. She has not had her dose yet today. She states though that she had symptoms similar to this in the past and has needed evaluation in the emergency department to control her nausea and vomiting. She denies any blood in her vomitus. She does have some pain in her stomach consistent with vomiting for several days which is likely muscular. Denies blood in vomitus. Denies any diarrhea. Related Data Home Medications Medication Instructions Recorded Confirmed methadone 5 mg/5 mL oral syringe 65 mg PO DAILY 12/12/22 04/13/23 (FOR ORAL USE ONLY) prochlorperazine maleate 10 mg 10 mg PO Q6H PRN #10 tabs 04/13/23 tablet (Compazine) Previous Rx's Medication Instructions Recorded prochlorperazine maleate 10 mg 10 mg PO Q6H PRN #10 tabs 04/13/23 tablet (Compazine) Allergies Allergy/AdvReac Type Severity Reaction Status Date / Time No Known Allergies Allergy Unverified 04/13/23 08:50 General Stated Complaint: Nausea/Vomit/Diar FABIÁN: 3 PFSH All Active Problems (Updated 04/13/23 @ 10:45 by RAQUEL Campos) Nausea & vomiting (Acute) Acute streptococcal pharyngitis (Acute) Acute vomiting (Acute) Cephalgia (Acute) Myalgia (Acute) Cyclical vomiting with nausea (Acute) Hypokalemia (Acute) Anxiety (Chronic) Medical History (Updated 04/13/23 @ 10:45 by RAQUEL Campos) Anxiety Narcotic abuse in remission Surgical History No significant past surgical history Social History Smoking/Tobacco Use Status: Current every day Tobacco Type: e-cigarettes Smoking risk assessment performed?: Yes Alcohol Intake: current Alcohol Intake frequency: holidays/special occasions only Alcohol type: beer Drug use: Daily Substance use type: marijuana and other Details: vapes THC , gets her own methadone and self medicates , she denies other street drugs Do you feel safe at home: Yes Do you feel safe in your relationship?: Yes History History 1 Para 1 Hx # Term Pregnancies Multiple births Hx # Pregnancies Ectopic pregnancies AB induced Hx Number of Living Children AB spontaneous Exam Const General: cooperative HENMT Other: Moist mucous membranes Eyes Other: No scleral icterus Resp Effort & Inspection: normal respiratory effort Cardio Rate: regular rate GI Other: Mild diffuse tenderness without rebound or guarding Course Vital Signs Vital signs: Vital Signs Temperature 36.3 C L 04/13/23 08:45 Pulse 57 L 04/13/23 08:45 Respiratory Rate 15 04/13/23 08:45 Blood Pressure 150/95 H 04/13/23 08:45 Pulse Oximetry 100 04/13/23 08:45 Temperature 36.3 C L 04/13/23 08:45 Temperature Source Oral 04/13/23 08:45 Pulse 80 04/13/23 10:49 Respiratory Rate 18 04/13/23 10:49 Respiratory Effort Normal 04/13/23 08:48 Blood Pressure 150/95 H 04/13/23 08:45 Blood Pressure Position Sitting 04/13/23 08:45 Pulse Oximetry 98 04/13/23 10:49 Oxygen Delivery Method Room Air 04/13/23 08:45 Oxygen Flow Rate 0 04/13/23 08:45 Pain Level 9 04/13/23 08:45 Lab/Test Results Lab/Test Results: Laboratory Tests Range/Units 04/13/23 04/13/23 04/13/23 09:03 09:30 09:30 WBC (4.4-10.8) 10^3/uL 12.70 H RBC (3.93-5.22) 10^6/uL 4.79 Hgb (11.2-15.7) g/dL 14.2 Hct (36.0-46.0) % 40.9 MCV (80-95) fL 85 MCH (27.0-33.0) pg 29.6 MCHC (32.0-36.0) % 34.7 RDW (11.7-14.6) % 13.2 Plt Count (130-400) 10^3/uL 360 MPV (8.0-11.0) fL 9.5 Immature Gran % 0.3 Neutrophils % 76.1 Lymphocytes % 17.6 Monocytes % 5.7 Eosinophils % 0.1 Basophils % 0.2 Nucleated RBC % (0.0-0.3) % 0.0 Absolute Neutrophils (1.2-6.7) 10^3/uL 9.66 H Absolute Lymphocytes (1.2-3.4) 10^3/uL 2.24 Absolute Monocytes (0.1-0.8) 10^3/uL 0.72 Absolute Eosinophils (0.0-0.7) 10^3/uL 0.01 Absolute Basophils (0.0-0.2) 10^3/uL 0.03 Sodium Cancelled 138 Potassium Cancelled 3.3 L Chloride Cancelled 99 Carbon Dioxide Cancelled 27.7 Anion Gap Cancelled 11.3 H BUN Cancelled 18 Creatinine Cancelled 1.1 H Est GFR (CKD-EPI 2020) Cancelled 73.77 Glucose Cancelled 112 H Calcium Cancelled 9.6 Total Bilirubin Cancelled 0.7 AST Cancelled 32 ALT Cancelled 37 Alkaline Phosphatase Cancelled 87 Total Protein Cancelled 8.8 H Albumin Cancelled 5.1 H Lipase (16-77) U/L 21 Serum HCG, Qual Urine Color Urine Clarity Urine pH Ur Specific [place] Urine Protein Urine Ketones Urine Blood Urine Nitrite Urine Bilirubin Urine Urobilinogen Ur Leukocyte Esterase Urine Glucose Range/Units 04/13/23 04/13/23 09:30 09:30 WBC (4.4-10.8) 10^3/uL RBC (3.93-5.22) 10^6/uL Hgb (11.2-15.7) g/dL Hct (36.0-46.0) % MCV (80-95) fL MCH (27.0-33.0) pg MCHC (32.0-36.0) % RDW (11.7-14.6) % Plt Count (130-400) 10^3/uL MPV (8.0-11.0) fL Immature Gran % Neutrophils % Lymphocytes % Monocytes % Eosinophils % Basophils % Nucleated RBC % (0.0-0.3) % Absolute Neutrophils (1.2-6.7) 10^3/uL Absolute Lymphocytes (1.2-3.4) 10^3/uL Absolute Monocytes (0.1-0.8) 10^3/uL Absolute Eosinophils (0.0-0.7) 10^3/uL Absolute Basophils (0.0-0.2) 10^3/uL Sodium Potassium Chloride Carbon Dioxide Anion Gap BUN Creatinine Est GFR (CKD-EPI 2020) Glucose Calcium Total Bilirubin AST ALT Alkaline Phosphatase Total Protein Albumin Lipase (16-77) U/L Serum HCG, Qual Negative Urine Color Cancelled Urine Clarity Cancelled Urine pH Cancelled Ur Specific [place] Cancelled Urine Protein Cancelled Urine Ketones Cancelled Urine Blood Cancelled Urine Nitrite Cancelled Urine Bilirubin Cancelled Urine Urobilinogen Cancelled Ur Leukocyte Esterase Cancelled Urine Glucose Cancelled
== END 2023-04-13 13:32 | disposition home or self-care (01) ==
PROVIDERS: Emergency Provider Physician Assistant
DX: R11.2 Nausea with vomiting, unspecified (principal); F41.9 Anxiety disorder, unspecified; F11.20 Opioid dependence, uncomplicated
CPT/HCPCS: 36415; 80053; 83690; 96361; 96374; 99284; 81003; 84703; 85025; J0780; J1200; J2405

== ENCOUNTER 2023-04-15 11:32 | Emergency (ER) | payer MEDICAID, SELFPAY ==
[2023-04-15 11:42] VITALS: BP 143/98; PULSE 68; RESP 18; TEMP 37; O2SAT 99
--- NOTE | 2023-04-15 12:00 | RT.EKG_ITS ---
APPROVED REPORT Exam: Resting ECG Reason for Exam: ?prolong qtc Patient Location: E HR:64 bpm ECG Measurements Heart Rate 64 AXIS VT 136 P 16 QRSd 96 QRS 67 QT 418 T 62 QTc 432 Conclusion Sinus rhythm...normal P axis, V-rate 60- 99
--- NOTE | 2023-04-15 12:09 | ED.GENADUL_ITS ---
Discharge Plan Disposition Patient Disposition: Home Condition: Stable Discharge Details Clinical Impression: Nausea & vomiting Primary Care Provider: None,None ED Provider: Dex Lawson Home Meds and New Rx's Prescriptions: New ondansetron 4 mg tablet,disintegrating 4 mg PO Q8H PRN (Reason: nausea and vomiting) Qty: 30 0RF Continued methadone 5 mg/5 mL Syringe 65 mg PO DAILY Discontinued prochlorperazine maleate [Compazine] 10 mg tablet 10 mg PO Q6H PRNQty: 10 0RF Discharge Instructions Instructions: Hypokalemia (ED), Acute Nausea and Vomiting (ED) Additional Instructions: IF you feel more ill, have severe pain or fevers return to the emergency department Medical Decision Making 22 yo female on methadone and reports almost daily marijuana use comes in with cc of n/v for several days. She was seen in the ED a few days ago for similar complaints and has been taking compazine per patient with no relief. She states when she vomits she has epigastric pain. Denies current pain now. She appears well, caox4 speaking clearly, she denies chest pain or dyspnea. She has a soft nondistended abdomen without tenderness, clear lungs, no murmurs. Suspect cyclic vomiting syndrome, given lack of tenderness on exam doubt surgical pathology such as cholecystitis or sbo. Will check cbc, cmp, lipase, treat her symptoms with droperidol and reassess. labs unremarkable other then K of 3.1 and has been low before, will have her increase her dietary intake, she feels better, still no abdominal tenderness on exam. Suspect cyclic vomiting syndrome, will have her f/u with her pcp, return precautions given Differential Diagnosis Differential Diagnosis: cyclic vomiting, cannabinoid hyperemesis Medical Records Medical records reviewed: Yes I reviewed the patient's medical records. Lab Data Lab results reviewed: Yes I reviewed the patient's lab results. ECG Data Attestation: I personally reviewed and interpreted this ECG (s) as follows: Prior ECG tracings: not available for review Interpretation: sinus rate of 64, qtc 432, no acute ischemic findings HPI General Mode of arrival: ambulatory . Date/Time Provider Initiated Documentation: 04/15/23 11:33 . Limitations to Documentation: no limitations . Information obtained by: patient . History of Present Illness 22 year old F presents to the emergency department with the chief complaint of nausea and vomiting, described as moderate, Patient started experiencing this day(s) (3) and it has been intermittent. No relieving factors improve symptom(s), No exacerbating factors reported . Patient notes denies chest pain, fever/chills and shortness of breath. Patient did receive the following treatments prior to arrival, none Related Data Home Medications Medication Instructions Recorded Confirmed methadone 5 mg/5 mL oral syringe 65 mg PO DAILY 12/12/22 04/13/23 (FOR ORAL USE ONLY) ondansetron 4 mg disintegrating 4 mg PO Q8H PRN nausea and 04/15/23 tablet vomiting #30 tabs Previous Rx's Medication Instructions Recorded ondansetron 4 mg disintegrating 4 mg PO Q8H PRN nausea and 04/15/23 tablet vomiting #30 tabs Allergies Allergy/AdvReac Type Severity Reaction Status Date / Time No Known Allergies Allergy Unverified 04/13/23 08:50 General Stated Complaint: Nausea/Vomit/Diar FABIÁN: 3 Review of Systems All systems reviewed & are unremarkable except as noted in HPI and below Constitutional Constitutional: Denies chills, Denies fever(s) and Denies weakness Cardiovascular Cardiovascular: Denies chest pain and Denies dyspnea Respiratory Respiratory: Denies cough and Denies dyspnea Gastrointestinal Gastrointestinal: Reports abdominal pain and Reports vomiting Genitourinary Genitourinary: Denies dysuria Musculoskeletal Musculoskeletal: Denies joint swelling Integumentary/Breasts Skin/Breast: Denies rash Neurologic Neurologic: Denies weakness PFSH All Active Problems (Updated 04/15/23 @ 13:51 by Dex Lawson MD) Nausea & vomiting (Acute) Acute streptococcal pharyngitis (Acute) Acute vomiting (Acute) Cephalgia (Acute) Myalgia (Acute) Cyclical vomiting with nausea (Acute) Hypokalemia (Acute) Anxiety (Chronic) Medical History (Updated 04/15/23 @ 13:51 by Dex Lawson MD) Anxiety Narcotic abuse in remission Surgical History No significant past surgical history Social History Smoking/Tobacco Use Status: Current every day Tobacco Type: e-cigarettes Smoking risk assessment performed?: Yes Alcohol Intake: current Alcohol Intake frequency: holidays/special occasions only Alcohol type: beer Drug use: Daily Substance use type: marijuana and other Details: vapes THC , gets her own methadone and self medicates , she denies other street drugs Do you feel safe at home: Yes Do you feel safe in your relationship?: Yes History History 1 Para 1 Hx # Term Pregnancies Multiple births Hx # Pregnancies Ectopic pregnancies AB induced Hx Number of Living Children AB spontaneous Exam Const General: no acute distress Orientation: alert HENMT Head: normal to inspection Ears: external ears normal General nose exam: external nose normal Mouth: moist mucous membranes Eyes General: appearance normal, both eyes and all related structures Neck Neck: normal visual inspection Resp Effort & Inspection: normal respiratory effort and able to speak in complete sentences Cardio Rate: regular rate GI Palpation: soft and nontender Skin General skin exam: no rashes or lesions noted Neuro General: patient alert and patient oriented x3 Extrem General: normal to inspection Psych Mental Status: mental status grossly normal Course Vital Signs Vital signs: Vital Signs Temperature 37.0 C 04/15/23 11:42 Pulse 68 04/15/23 11:42 Respiratory Rate 18 04/15/23 11:42 Blood Pressure 143/98 H 04/15/23 11:42 Pulse Oximetry 99 04/15/23 11:42 Temperature 37.0 C 04/15/23 11:42 Pulse 68 04/15/23 11:42 Respiratory Rate 18 04/15/23 11:42 Blood Pressure 143/98 H 04/15/23 11:42 Pulse Oximetry 99 04/15/23 11:42
[2023-04-15] MEDS: Normal Saline 1,000 ML 1000 ML IV (12:23)
[2023-04-15] MEDS: Droperidol 5 MG/2 ML VIAL 2.5 MG IVP (12:23)
[2023-04-15 12:31] LABS: Abs Immature Grans 0.02 10^3/uL (0.0-0.06); Absolute Basophil Count 0.02 10^3/uL (0.0-0.2); Absolute Lymphocyte Count 1.16 10^3/uL (1.2-3.4); Absolute Monocyte Count 0.32 10^3/uL (0.1-0.8); Absolute Neutrophil Count 4.63 10^3/uL (1.2-6.7); Basophils % 0.3; HCT 36.7 % (36.0-46.0); HGB 12.7 g/dL (11.2-15.7); Immature Grans % 0.3; Lymphocytes % 18.9; MCH 29.5 pg (27.0-33.0); MCHC 34.6 % (32.0-36.0); MCV 85 fL (80-95); MPV 9.6 fL (8.0-11.0); Monocytes % 5.2; Neutrophils % 75.3; Platelet Count 297 10^3/uL (130-400); RDW-SD 39.8 fL; WBC 6.15 10^3/uL (4.4-10.8)
[2023-04-15 12:46] LABS: ALT 24 U/L (14-59); AST 23 U/L (15-37); Albumin 4.8 g/dL (3.4-5.0); Alkaline Phosphatase 83 U/L (46-116); Anion Gap 11.2 mmol/L (3-11); BUN 9 mg/dL (7-18); Bilirubin, Total 0.5 mg/dL (0.2-1.0); CO2 26.8 mmol/L (21.0-32.0); Calcium 9.1 mg/dL (8.5-10.1); Chloride 99 mmol/L (98-107); Estimated GFR 82.71 (mL/min/1.73m2); Glucose 105 mg/dL (74-106); Lipase 21 U/L (16-77); Magnesium 1.8 mg/dL (1.8-2.4); Potassium 3.1 mmol/L (3.5-5.1); Sodium 137 mmol/L (136-145); Total Protein 8.1 g/dL (6.4-8.2); Troponin I < 50 ng/L (<or=60)
[2023-04-15 14:08] VITALS: PULSE 85; RESP 18; O2SAT 95
== END 2023-04-15 14:09 | disposition home or self-care (01) ==
PROVIDERS: Emergency Provider Emergency Medicine
DX: R11.2 Nausea with vomiting, unspecified (principal)
CPT/HCPCS: 80053; 81025; 83690; 93005; 96361; 96374; 99284; 83735; 84484; 85025; 93010; J1790

== ENCOUNTER 2023-05-03 12:48 | Emergency (ER) | payer MEDICAID, SELFPAY ==
[2023-05-03 12:59] VITALS: BP 140/90; PULSE 70; RESP 18; TEMP 36.8; O2SAT 100
--- NOTE | 2023-05-03 14:49 | NUR.NOTE ---
Nursing Note: [address] Elaine, last dose 05/02/2023; 65mg since 2021; patient is compliant.
[2023-05-03] MEDS: Prochlorperazine 10 MG/2 ML VIAL 5 MG IM (14:51)
--- NOTE | 2023-05-03 15:06 | ED.GENADUL_ITS ---
Discharge Plan Disposition Patient Disposition: Home Condition: Stable Discharge Details Clinical Impression: Cyclical vomiting with nausea Primary Care Provider: None,None ED Provider: Shasta Diego Home Meds and New Rx's Prescriptions: New prochlorperazine maleate [Compazine] 10 mg tablet 10 mg PO Q6H PRNQty: 14 0RF Continued ondansetron 4 mg tablet,disintegrating 4 mg PO Q8H PRN (Reason: nausea and vomiting) Qty: 30 0RF methadone 5 mg/5 mL Syringe 65 mg PO DAILY Patient Comments: 65mg dose confirmed by dr nelson at [facility] on 05/03/23 Discharge Instructions Instructions: Acute Nausea and Vomiting (ED) Additional Instructions: Take Compazine as needed for nausea and vomiting Clear liquid diet as tolerated Return with fever, chills,, or with any new or worsening complaints Discharge Data Discharge Date/Time-TO BE ENTERED AT DEPARTURE: 05/03/23 16:00 Medical Decision Making Patient is of vomiting in the emergency department, she has had nausea and vomiting reportedly since last evening Vitals have been stable throughout her encounter, she is afebrile and nontoxic, alert and oriented She is concerned that she also is having withdrawal symptoms from her methadone as she missed her dose today secondary to her current state of nausea and vomiting In the emergency department she received Compazine IM and is now able to tolerate p.o. water and popsicle She was given her dose of methadone and is feeling marked improvement, she is noted to be texting on her phone and laughing when I walked into the room for reassessment and is requesting discharge home at this time She is given antiemetics for home and discharged home in stable condition with stable vitals HPI General Date/Time Provider Initiated Documentation: 05/03/23 14:24 . HPI Narrative: This 22-year-old female presents with report of nausea and vomiting with diarrhea. She states her symptoms started after having [employer] last evening. Denies known sick contacts. History of methadone use, unable to take her dose today so possibly an element of withdrawal per patient. Denies chance of . Patient reports chills. Denies chest pain or shortness of breath. Related Data Home Medications Medication Instructions Recorded Confirmed methadone 5 mg/5 mL oral syringe 65 mg PO DAILY 12/12/22 04/13/23 (FOR ORAL USE ONLY) ondansetron 4 mg disintegrating 4 mg PO Q8H PRN nausea and 04/15/23 tablet vomiting #30 tabs prochlorperazine maleate 10 mg 10 mg PO Q6H PRN #14 tabs 05/03/23 tablet (Compazine) Previous Rx's Medication Instructions Recorded ondansetron 4 mg disintegrating 4 mg PO Q8H PRN nausea and 04/15/23 tablet vomiting #30 tabs prochlorperazine maleate 10 mg 10 mg PO Q6H PRN #14 tabs 05/03/23 tablet (Compazine) Allergies Allergy/AdvReac Type Severity Reaction Status Date / Time No Known Allergies Allergy Unverified 04/13/23 08:50 General Stated Complaint: Nausea/Vomit/Diar FABIÁN: 3 PFSH All Active Problems (Updated 05/03/23 @ 15:42 by RAQUEL Campos) Nausea & vomiting (Acute) Acute streptococcal pharyngitis (Acute) Acute vomiting (Acute) Cephalgia (Acute) Myalgia (Acute) Cyclical vomiting with nausea (Acute) Hypokalemia (Acute) Anxiety (Chronic) Medical History (Updated 05/03/23 @ 15:42 by RAQUEL Campos) Anxiety Narcotic abuse in remission Surgical History No significant past surgical history Social History Smoking/Tobacco Use Status: Current every day Tobacco Type: e-cigarettes Smoking risk assessment performed?: Yes Alcohol Intake: current Alcohol Intake frequency: holidays/special occasions only Alcohol type: beer Drug use: Daily Substance use type: marijuana and other Details: vapes THC , gets her own methadone and self medicates , she denies other street drugs Do you feel safe at home: Yes Do you feel safe in your relationship?: Yes History History 1 Para 1 Hx # Term Pregnancies Multiple births Hx # Pregnancies Ectopic pregnancies AB induced Hx Number of Living Children AB spontaneous Course Vital Signs Vital signs: Vital Signs Temperature 36.8 C 05/03/23 12:59 Pulse 70 05/03/23 12:59 Respiratory Rate 18 05/03/23 12:59 Blood Pressure 140/90 05/03/23 12:59 Pulse Oximetry 100 05/03/23 12:59 Temperature 36.8 C 05/03/23 12:59 Pulse 70 05/03/23 12:59 Respiratory Rate 18 05/03/23 12:59 Respiratory Effort Normal 05/03/23 13:01 Blood Pressure 140/90 05/03/23 12:59 Pulse Oximetry 100 05/03/23 12:59 Oxygen Delivery Method Room Air 05/03/23 12:59 Oxygen Flow Rate 0 05/03/23 12:59 Pain Level 5 05/03/23 12:59 Lab/Test Results Lab/Test Results: POC- Test(urine) Negative PAWSS Have you Been Recently Intoxicated or Drunk Within the Last 30 days?: No Have you Ever Experienced Previous Episodes of Alcohol Withdrawal?: No Have you ever Experienced Withdrawal Seizures?: No Have you ever Experienced Delirium Tremens(DT)s?: No Have you ever undergone Alcohol Rehabilitation Treatment (i.e, inpt ot outpatient treatment programs)?: No Have you ever Experienced Blackouts?: No Have you ever Combined Alcohol with other Downers within the last 90 days?: No Have you ever Combined Alcohol with any other Substance of Abuse during the last 90 days?: No Positive Blood Alcohol level on Presentation? [PCS.BAL]: No Evidence of Increased Autonomic Activity (i.e. HR>120, tremor, sweating, agitation, nausea)?: No Result: 0
[2023-05-03] MEDS: diphenhydrAMINE 25 MG CAP PO (15:10)
[2023-05-03] MEDS: Methadone Liquid 10 MG/ML 65 MG PO (15:24)
== END 2023-05-03 16:00 | disposition home or self-care (01) ==
PROVIDERS: Emergency Provider Physician Assistant
DX: R11.15 Cyclical vomiting syndrome unrelated to migraine (principal)
CPT/HCPCS: 81025; 96372; 99284; J0780

== ENCOUNTER 2023-11-29 18:54 | Outpatient (REF) | payer MEDICAID, SELFPAY ==
--- NOTE | 2023-11-29 14:00 | PAPFT_PTH ---
PATIENT: Holly Castillo LOC: [facility] U#:[id number] AGE/SX: 23/F ROOM: RE11/29/[address]: Rylee Lane : 2000 BED: DIS: 11/29/2023 SPEC #: [id number] RECD: 11/30/23 12:45 STATUS: BRITT REBernadette #: [id number] ISSAC: 11/29/23 14:[address]: Rylee Lane DEPT: [facility] Cytology RECD BY: Shasta Kelly ENTERED: 11/30/23 12:45 SP TYPE: PAPFT OTHR DR: Unknown,Unknown Tissues: 1 - CX/ENDOCX FOR PAP SMEARS Procedures: PAP THIN PREP/UVM Screening Comments: [id number] (CHLAMYDIA/GC)
[2023-12-03 15:31] LABS: GC Result Negative (Negative)
[2023-12-03 15:41] LABS: Chlamydia Result Positive (Negative)
== END 2023-11-29 18:55 | disposition home or self-care (01) ==
LOC: NCHCN 18:54
PROVIDERS: Visit Provider Nurse Practitioner Family
DX: Z00.00 Encounter for general adult medical examination without abnormal findings (principal)
CPT/HCPCS: 87491; 87591; 88142; 87480; 87510; 87660

== ENCOUNTER 2024-02-22 18:09 | Outpatient (REF) | payer MEDICAID, SELFPAY ==
[2024-02-25 12:53] LABS: Chlamydia Result Negative (Negative); GC Result Negative (Negative)
== END 2024-02-22 18:10 | disposition home or self-care (01) ==
LOC: NCHCN 18:09
PROVIDERS: Referring Provider Nurse Practitioner Family; Visit Provider Nurse Practitioner Family
DX: N76.0 Acute vaginitis (principal); A74.9 Chlamydial infection, unspecified
CPT/HCPCS: 87491; 87591; 87480; 87510; 87660

== ENCOUNTER 2024-05-02 12:06 | Emergency (ER) | payer MEDICAID, SELFPAY ==
[2024-05-02] VITALS (22 sets, daily range): BP systolic 116–193; BP diastolic 63–110; PULSE 65–101; RESP 8–27; TEMP 36.6; O2SAT 99–100
--- NOTE | 2024-05-02 12:30 | RT.EKG_ITS ---
APPROVED REPORT Exam: Resting ECG Reason for Exam: Ventricular bigeminy seen on telemetry Patient Location: E HR:85 bpm ECG Measurements Heart Rate 85 AXIS WV 152 P 68 QRSd 96 QRS 76 QT 368 T 26 QTc 428 Conclusion Sinus rhythm 85 normal axis PVCs
[2024-05-02 12:43] LABS: Abs Immature Grans 0.05 10^3/uL (0.0-0.06); Absolute Basophil Count 0.02 10^3/uL (0.0-0.2); Absolute Lymphocyte Count 2.09 10^3/uL (1.2-3.4); Absolute Neutrophil Count 7.33 10^3/uL (1.2-6.7); Basophils % 0.2 %; HCT 42.6 % (36.0-46.0); HGB 15.5 g/dL (11.2-15.7); Immature Grans % 0.5 %; Lymphocytes % 20.9 %; MCH 33.6 pg (27.0-33.0); MCHC 36.4 % (32.0-36.0); MCV 92 fL (80-95); MPV 9.5 fL (8.0-11.0); Neutrophils % 73.4 %; Platelet Count 358 10^3/uL (130-400); RBC 4.61 10^6/uL (3.93-5.22); RDW 12.2 % (11.7-14.6); RDW-SD 41.7 fL; WBC 9.99 10^3/uL (4.4-10.8)
--- NOTE | 2024-05-02 12:48 | W.ED.GENAD ---
Discharge Plan Disposition Patient Disposition: Home Condition: Stable Discharge Details Clinical Impression: Acute vomiting, Alcohol withdrawal Primary Care Provider: Unknown,Unknown ED Provider: Reji Phoenix Home Meds and New Rx's Prescriptions: New promethazine 25 mg tablet 25 mg PO TID PRNQty: 14 0RF No Action ondansetron 4 mg tablet,disintegrating 4 mg PO Q8H PRN (Reason: nausea and vomiting) Qty: 30 0RF prochlorperazine maleate [Compazine] 10 mg tablet 10 mg PO Q6H PRNQty: 14 0RF methadone 5 mg/5 mL Syringe 65 mg PO DAILY Patient Comments: 65mg dose confirmed by dr nelson at [facility] on 05/03/23 Discharge Instructions Instructions: Alcohol withdrawal Additional Instructions: Please do not drink alcohol to excess. I think your vomiting symptoms today were related to alcohol withdrawal. Please followed up with [facility] for help with alcohol recovery. Additional nausea medication has been sent to the emergency pharmacy. Please return to the emergency department if you have any additional symptoms or are unable to tolerate anything by mouth HPI General Date/Time Provider Initiated Documentation: 05/02/24 12:14. Limitations to Documentation: no limitations. Information obtained by: patient. HPI Narrative: 23y F with PMH of alcohol abuse, SVITLANA (on methadone), cyclic vomiting, presents for evaluation of vomiting and diarrhea. she reports symptoms have started after she stopped drinking alcohol. she says that she was drinking 1 pt vodka daily and stopped about 5 days ago. she said she had a hangover and that it just never went away and the vomiting started. she denies any abdominal pain. she reports some loose stool. no fever. no known sick contacts. Related Data Home Medications Medication Instructions Recorded Confirmed methadone 5 mg/5 mL oral syringe 65 mg PO DAILY 12/12/22 05/02/24 (FOR ORAL USE ONLY) ondansetron 4 mg disintegrating 4 mg PO Q8H PRN nausea and 04/15/23 05/02/24 tablet vomiting #30 tabs prochlorperazine maleate 10 mg 10 mg PO Q6H PRN #14 tabs 05/03/23 05/02/24 tablet (Compazine) promethazine 25 mg tablet 25 mg PO TID PRN #14 tabs 05/02/24 Previous Rx's Medication Instructions Recorded ondansetron 4 mg disintegrating 4 mg PO Q8H PRN nausea and 04/15/23 tablet vomiting #30 tabs prochlorperazine maleate 10 mg 10 mg PO Q6H PRN #14 tabs 05/03/23 tablet (Compazine) promethazine 25 mg tablet 25 mg PO TID PRN #14 tabs 05/02/24 Allergies Allergy/AdvReac Type Severity Reaction Status Date / Time No Known Allergies Allergy Unverified 05/02/24 12:11 General Stated Complaint: GenMedical FABIÁN: 3 Exam Narrative Exam Narrative: Review of Systems: All systems reviewed & are unremarkable except as noted in HPI and below thin, actively vomiting NCAT PERRL, normal conjunctiva poor dentition tachycardic, hypertensive Unlabored respiratory effort, clear bilaterally Nondistended abdomen , soft non tender Extremities w/o deformity, no cyanosis, no edema No rashes or lesions. no focal neurologic deficits mild hand tremor, normal gait Appropriate mood and affect and daily Course Vital Signs Vital signs: Vital Signs Temperature 36.6 C 05/02/24 12:08 Pulse 101 H 05/02/24 12:08 Respiratory Rate 20 05/02/24 12:08 Blood Pressure 193/110 H 05/02/24 12:08 Pulse Oximetry 100 05/02/24 12:08 Temperature 36.6 C 05/02/24 12:08 Temperature Source Oral 05/02/24 12:08 Pulse 101 H 05/02/24 12:08 Respiratory Rate 20 05/02/24 12:08 Blood Pressure 193/110 H 05/02/24 12:08 Blood Pressure Position Sitting 05/02/24 12:08 Pulse Oximetry 100 05/02/24 12:08 Oxygen Delivery Method Room Air 05/02/24 12:08 Oxygen Flow Rate 0 05/02/24 12:08 Pain Level 8 05/02/24 12:08 Lab/Test Results Lab/Test Results: Laboratory Tests Range/Units 05/02/24 12:30 WBC (4.4-10.8) 10^3/uL 9.99 RBC (3.93-5.22) 10^6/uL 4.61 Hgb (11.2-15.7) g/dL 15.5 Hct (36.0-46.0) % 42.6 MCV (80-95) fL 92 MCH (27.0-33.0) pg 33.6 H MCHC (32.0-36.0) % 36.4 H RDW (11.7-14.6) % 12.2 Plt Count (130-400) 10^3/uL 358 MPV (8.0-11.0) fL 9.5 Immature Gran % % 0.5 Neutrophils % % 73.4 Lymphocytes % % 20.9 Monocytes % % 5.0 Eosinophils % % 0.0 Basophils % % 0.2 Nucleated RBC % (0.0-0.3) % 0.0 Absolute Neutrophils (1.2-6.7) 10^3/uL 7.33 H Absolute Lymphocytes (1.2-3.4) 10^3/uL 2.09 Absolute Monocytes (0.1-0.8) 10^3/uL 0.50 Absolute Eosinophils (0.0-0.7) 10^3/uL 0.00 Absolute Basophils (0.0-0.2) 10^3/uL 0.02 Medical Decision Making Emergent evaluation of vomiting. Initial differential includes gastrointestinal illness, foodborne illness, given history significant alcohol abuse, have a high suspicion for alcohol withdrawal syndrome. Particularly because of her vital signs being abnormal. She has no abdominal tenderness concerning for an acute intra-abdominal process causing her vomiting and diarrhea. I will begin fluid resuscitation and treat alcohol withdrawal symptoms with phenobarbital per protocol., Will replace electrolytes and as necessary, anticipate admission if symptoms persist. 1345 Labs reviewed, no leukocytosis, normal hemoglobin levels. No thrombocytopenia. Her electrolytes are generally deranged but not significantly. Slightly low sodium, potassium and chloride. She has a significant anion gap and some mild acidosis. Will continue fluid resuscitation. after first dose of phenobarb, vitals have significantly improved. 1540 Patient observed in the emergency department. Her vital signs have remained stable, repeat BMP demonstrated normalization in her derangements. Anion gap is closed. Patient is now tolerating p.o. Her urinalysis is unremarkable. The patient would like to go home at this time. Will send Phenergan medication to take in addition to her Zofran. I recommend she follow-up with [facility] for alcohol abuse treatment. Return precautions advised. Medical Records Medical records reviewed: Yes I reviewed the patient's medical records. Lab Data Lab results reviewed: Yes I reviewed the patient's lab results. Quality:[facility] Health Related Social Needs: No Data to Display PFSH All Active Problems (Updated 05/02/24 @ 15:33 by Reji Phoenix MD) Alcohol withdrawal (Acute) Acute streptococcal pharyngitis (Acute) Acute vomiting (Acute) Cephalgia (Acute) Myalgia (Acute) Cyclical vomiting with nausea (Acute) Hypokalemia (Acute) Anxiety (Chronic) Medical History Narcotic abuse in remission Anxiety Surgical History No significant past surgical history Social History Smoking/Tobacco Use Status: Current every day Tobacco Type: e-cigarettes Smoking risk assessment performed?: Yes Alcohol Intake: current Alcohol Intake frequency: 3 or more drinks per day Alcohol type: hard liquor Drug use: Daily Substance use type: marijuana and other Details: vapes THC , gets her own methadone and self medicates , she denies other street drugs Do you feel safe at home: Yes Do you feel safe in your relationship?: Yes History History 1 Para 1 Hx # Term Pregnancies Multiple births Hx # Pregnancies Ectopic pregnancies AB induced Hx Number of Living Children AB spontaneous
[2024-05-02] MEDS: Ondansetron 4 MG/2 ML VIAL 8 MG IVP (12:52)
[2024-05-02] MEDS: Normal Saline 1,000 ML 1000 ML IV ×2 (12:52→13:45)
[2024-05-02] MEDS: THIAMINE 100 MG in Normal Saline 100 ML 200 MG IVPB (12:53)
[2024-05-02 13:02] LABS: ALT 42 U/L (14-59); AST 49 U/L (15-37); Albumin 5.7 g/dL (3.4-5.0); Alkaline Phosphatase 76 U/L (46-116); Anion Gap 18.5 mmol/L (3-11); BUN 18 mg/dL (7-18); Bilirubin, Total 1.3 mg/dL (0.2-1.0); CO2 20.5 mmol/L (21.0-32.0); Calcium 10.8 mg/dL (8.5-10.1); Chloride 95 mmol/L (98-107); Glucose 113 mg/dL (74-106); Lipase 32 U/L (16-77); Magnesium 1.9 mg/dL (1.8-2.4); Potassium 3.3 mmol/L (3.5-5.1); Sodium 134 mmol/L (136-145); Total Protein 9.5 g/dL (6.4-8.2)
[2024-05-02 13:03] LABS: ETHANOL BLOOD < 3.0 mg/dL (<10)
[2024-05-02 15:05] LABS: Bilirubin Moderate (Negative); Blood Negative (Negative); Clarity Clear (Clear); Glucose Negative (Negative); Ketones 15 mg/dL (Negative); Leukocyte Esterase Negative (Negative); Nitrite Negative (Negative); Specific Gravity >= 1.030 (1.005-1.025); Urobilinogen 0.2 mg/dL (Up to 0.2)
[2024-05-02 15:09] LABS: Anion Gap 9.3 mmol/L (3-11); BUN 15 mg/dL (7-18); CO2 23.7 mmol/L (21.0-32.0); CREATININE 0.9 mg/dL (0.55-1.02); Calcium 8.2 mg/dL (8.5-10.1); Chloride 103 mmol/L (98-107); Estimated GFR 93.28 (mL/min/1.73m2); Glucose 94 mg/dL (74-106); Potassium 3.6 mmol/L (3.5-5.1); Sodium 136 mmol/L (136-145)
[2024-05-02 15:13] LABS: *AMPHETAMINES SCREEN URINE Negative (Negative); *BARBITURATES SCREEN URINE Positive (Negative); *BENZODIAZEPINES SCREEN URINE Negative (Negative); Cannabinoids THC Positive (Negative); Cocaine Screen,Urine Negative (Negative); METHADONE URINE SCREEN Positive (Negative); OPIATES URINE SCREEN Negative (Negative)
[2024-05-02 15:15] LABS: Tricyclic Antidepressants Negative (Negative)
[2024-05-02 15:24] LABS: Bacteria Negative HPF (Negative); C & S Indicated? No; Crystals Negative HPF (Negative); Epithelial Cells Few HPF (Negative); Mucus Heavy (Negative); Other Cells Rare Transitional (Negative); RBC 0-2 HPF (0-2); WBC 0-2 HPF (0-5)
== END 2024-05-02 15:47 | disposition home or self-care (01) ==
PROVIDERS: Emergency Provider Emergency Medicine
DX: F10.130 Alcohol abuse with withdrawal, uncomplicated (principal); F11.10 Opioid abuse, uncomplicated; F17.290 Nicotine dependence, other tobacco product, uncomplicated
CPT/HCPCS: 36415; 80048; 80053; 80307; 83690; 93005; 96365; 96367; 99284; 80320; 81003; 81015; 83735; 85025; 93010; J2405; J2560; J3411

== ENCOUNTER 2024-05-04 09:40 | Emergency (ER) | payer MEDICAID, SELFPAY ==
[2024-05-04] VITALS (26 sets, daily range): BP systolic 155–237; BP diastolic 104–151; PULSE 70–92; RESP 12–23; TEMP 36.4; O2SAT 100
--- NOTE | 2024-05-04 10:09 | W.ED.GENAD ---
Discharge Plan Disposition Patient Disposition: Home Discharge Details Clinical Impression: Elevated blood pressure reading with diagnosis of hypertension, Nausea & vomiting, Hypokalemia Primary Care Provider: Unknown,Unknown ED Provider: Douglas Hewitt Home Meds and New Rx's Prescriptions: Continued ondansetron 4 mg tablet,disintegrating 4 mg PO Q8H PRN (Reason: nausea and vomiting) Qty: 30 0RF prochlorperazine maleate [Compazine] 10 mg tablet 10 mg PO Q6H PRNQty: 14 0RF methadone 5 mg/5 mL Syringe 65 mg PO DAILY Patient Comments: 65mg dose confirmed by dr nelson at [facility] on 05/03/23 promethazine 25 mg tablet 25 mg PO TID PRNQty: 14 0RF Discharge Instructions Additional Instructions: You were seen in the emergency department for your nausea and vomiting. Your potassium was mildly low and you received oral and IV repletion. Your blood pressure was also elevated. As we discussed please follow-up next week with your primary care provider. Please return to the emergency department if you develop fevers, if you do not urinate at least once every 8 hours while awake, or if you have any other concerns. Discharge Data Discharge Date/Time-TO BE ENTERED AT DEPARTURE: 05/04/24 13:26 HPI General Date/Time Provider Initiated Documentation: 05/04/24 10:09. HPI Narrative: MDM This is an overall very well-appearing afebrile not tachycardic 23-year-old female with nausea vomiting marijuana use but no tongue fasciculations and 4 days status post last drink being my suspicion lower for withdrawal from alcohol. Patient is not scoring on the CIWA score. She has no pain out of proportion to suggest necrotizing soft tissue infection. She has a soft nontender abdomen making my suspicion low for appendicitis. She does have some epigastric tenderness making pancreatitis in the differential so we will check a lipase. No right upper quadrant tenderness nor Cox sign make my suspicion low for cholecystitis. No left upper quadrant tenderness nor recently making my suspicion low for splenic arterial aneurysm. Patient is hypertensive but is not recently making my suspicion for preeclampsia low. No rash to abdomen to suggest zoster. My suspicion is low for ACS though the patient's father had a myocardial infarction when he was 38 so we will obtain a single troponin and if this is negative will be reassured against ACS. No dysuria no frequency so doubt UTI. No tearing quality to chest pain to suggest aortic dissection. Equal breath sounds and no trauma so doubt pneumothorax. No crepitance to suggest increased risk for esophageal rupture. I considered PE as the patient is on OCPs however she is not hypoxic nor tachycardic nor hypotensive so I did not send a D-dimer. Will attempt treatment for nausea with droperidol and reassess following labs. 11 AM CBC lacks anemia thrombocytopenia and leukocytosis. 11:20 AM Negative ethanol level. Negative troponin. Comprehensive metabolic panel showing mild hypokalemia with a serum potassium of 2.8. No WILVER. Mild hyperglycemia mild anion gap and normal bicarbonate??not consistent with DKA. No acute LFT abnormalities. Reassuring normal magnesium. Lipase not consistent with pancreatitis. Patient feels persistently nauseous for which she will receive an additional 1.25 mg of IV droperidol. 1 PM Patient felt improved. hCG negative. She has outpatient antiemetics prescribed. I discussed return to ED for any fevers and intractable vomiting or any abdominal pain. Patient understood her return indications and was discharged with empiric trial of expectant outpatient management. Of note her blood pressure was elevated at the time of discharge. I advised primary care provider follow-up. Patient has not recently so I am not concerned for preeclampsia. Chronic conditions affecting the care of the patient: Cyclical vomiting History obtained from an outside historian: N/A External record review: No [facility] EMR records Diagnostic interpretations performed by me: Per my independent interpretation EKG shows: Normal sinus rhythm at a rate of 77. Normal axis. Intervals within normal limits. T wave flattening in aVL. Significant artifact. No ST segment abnormalities. No acute injury pattern. Appears similar compared to prior dated last week. ]Medications: Droperidol Social determinants of health affecting disposition: Marijuana use Management discussed with: N/A Treatment/interventions considered: N/A Response to therapies provided: Improved symptoms in the ED HPI This is a 23-year-old female with history of tobacco use and marijuana use prior to the emergency department via private vehicle in the setting of nausea vomiting and concern for withdrawal from ethanol. Patient reports that she last drank 4 to 5 days ago. She typically drinks 1 pint of vodka a day and a half a bottle of wine. She also smokes marijuana but last did this 2 to 3 days ago. She is a daily tobacco user. She feels as if she is going through withdrawal oral. She has been nauseous and vomiting. She has also been sweaty and having loose stools. She endorses anxiety. She never had a DVT nor PE. She has noticed with central chest pain that radiates into her epigastrium. She has been dry heaving. She takes oral contraceptive pills. Her father had a myocardial infarction when he was 38 years old. Patient has no history of coronary artery disease hypertension hyperlipidemia nor diabetes. No recent falls. Exam General: Well-appearing in no acute distress speaking in complete sentences. Head: Normocephalic, atraumatic. Eye: Extraocular eye movements intact. No conjunctival injection. No scleral icterus. Ear, nose, mouth, throat: Grossly normal inspection. Normal voice, handling secretions normally. No tongue fasciculations Neck: Trachea midline. Cardiovascular: Well-perfused distal extremities. Regular rate and rhythm. Chest wall: No crepitance. Respiratory: Nonlabored respiration. Clear lungs bilaterally Gastrointestinal: Nondistended abdomen. Soft nontender. No rebound. No guarding. Musculoskeletal: No edema. Moving all 4 extremities spontaneously. Skin: Normal for age and race, grossly normal temperature and turgor. No acute rash. Neurologic: Alert and appropriate, no apparent acute deficits. Psychiatric: Mood and manner are appropriate. Grooming and personal hygiene are appropriate. Related Data Home Medications Medication Instructions Recorded Confirmed methadone 5 mg/5 mL oral syringe 65 mg PO DAILY 12/12/22 05/02/24 (FOR ORAL USE ONLY) ondansetron 4 mg disintegrating 4 mg PO Q8H PRN nausea and 04/15/23 05/02/24 tablet vomiting #30 tabs prochlorperazine maleate 10 mg 10 mg PO Q6H PRN #14 tabs 05/03/23 05/02/24 tablet (Compazine) promethazine 25 mg tablet 25 mg PO TID PRN #14 tabs 05/02/24 Previous Rx's Medication Instructions Recorded ondansetron 4 mg disintegrating 4 mg PO Q8H PRN nausea and 04/15/23 tablet vomiting #30 tabs prochlorperazine maleate 10 mg 10 mg PO Q6H PRN #14 tabs 05/03/23 tablet (Compazine) promethazine 25 mg tablet 25 mg PO TID PRN #14 tabs 05/02/24 Allergies Allergy/AdvReac Type Severity Reaction Status Date / Time No Known Allergies Allergy Unverified 05/04/24 09:48 General Stated Complaint: ETOHWithdr FABIÁN: 2 Course Vital Signs Vital signs: Vital Signs Temperature 36.4 C L 05/04/24 09:45 Pulse 83 05/04/24 09:45 Respiratory Rate 20 05/04/24 09:45 Blood Pressure 174/113 H 05/04/24 09:45 Pulse Oximetry 100 05/04/24 09:45 Temperature 36.4 C L 05/04/24 09:45 Temperature Source Temporal Artery Scan 05/04/24 09:45 Pulse 83 05/04/24 09:45 Respiratory Rate 20 05/04/24 09:45 Blood Pressure 174/113 H 05/04/24 09:45 Pulse Oximetry 100 05/04/24 09:45 Medical Decision Making Quality:SDOH Health Related Social Needs: No Data to Display PFSH All Active Problems (Updated 05/04/24 @ 13:01 by Douglas Hewitt MD) Nausea & vomiting (Acute) Elevated blood pressure reading with diagnosis of hypertension (Acute) Alcohol withdrawal (Acute) Acute streptococcal pharyngitis (Acute) Acute vomiting (Acute) Cephalgia (Acute) Myalgia (Acute) Cyclical vomiting with nausea (Acute) Hypokalemia (Acute) Anxiety (Chronic) Medical History Narcotic abuse in remission Anxiety Surgical History No significant past surgical history Social History Smoking/Tobacco Use Status: Current every day Tobacco Type: e-cigarettes Smoking risk assessment performed?: Yes Alcohol Intake: current Alcohol Intake frequency: 3 or more drinks per day Alcohol type: wine and hard liquor Drug use: Daily Substance use type: marijuana and other Details: vapes THC , gets her own methadone and self medicates , she denies other street drugs Do you feel safe at home: Yes Do you feel safe in your relationship?: Yes History History 1 Para 1 Hx # Term Pregnancies Multiple births Hx # Pregnancies Ectopic pregnancies AB induced Hx Number of Living Children AB spontaneous
--- NOTE | 2024-05-04 10:15 | RT.EKG_ITS ---
APPROVED REPORT Exam: Resting ECG Reason for Exam: Chest pain Patient Location: E HR:77 bpm ECG Measurements Heart Rate 77 AXIS PA [id number] P [id number] QRSd 91 QRS 75 QT 389 T 75 QTc 440 Conclusion Accelerated junctional rhythm...absent P waves, accele'd V-rate Abnormal T, consider ischemia, lateral leads...T <-0.20mV, I aVL V5 V6 Normal sinus rhythm at a rate of 77. Normal axis. Intervals within normal limits. T wave flattenin g in aVL. Significant artifact. No ST segment abnormalities. No acute injury pattern. Appears sim ilar compared to prior dated last week.
[2024-05-04] MEDS: Normal Saline 1,000 ML 1000 ML IV (10:46)
[2024-05-04] MEDS: Droperidol 5 MG/2 ML VIAL 1.25 MG IVP ×2 (10:46→12:00)
[2024-05-04 10:47] LABS: Abs Immature Grans 0.03 10^3/uL (0.0-0.06); Absolute Basophil Count 0.02 10^3/uL (0.0-0.2); Absolute Eosinophil Count 0.01 10^3/uL (0.0-0.7); Absolute Lymphocyte Count 1.43 10^3/uL (1.2-3.4); Absolute Monocyte Count 0.37 10^3/uL (0.1-0.8); Absolute Neutrophil Count 4.03 10^3/uL (1.2-6.7); Basophils % 0.3 %; Eosinophils % 0.2 %; HCT 40.4 % (36.0-46.0); HGB 14.4 g/dL (11.2-15.7); Immature Grans % 0.5 %; Lymphocytes % 24.3 %; MCH 33.7 pg (27.0-33.0); MCHC 35.6 % (32.0-36.0); MCV 95 fL (80-95); MPV 9.9 fL (8.0-11.0); Monocytes % 6.3 %; Neutrophils % 68.4 %; Platelet Count 224 10^3/uL (130-400); RBC 4.27 10^6/uL (3.93-5.22); RDW 12.4 % (11.7-14.6); RDW-SD 43.2 fL; WBC 5.89 10^3/uL (4.4-10.8)
--- NOTE | 2024-05-04 10:47 | NUR.NOTE ---
Nursing Note: When RN entered room, patient was observed with finger in mouth attempting to make herself vomit. MD [email or web address]
[2024-05-04 11:06] LABS: ALT 33 U/L (14-59); AST 29 U/L (15-37); Albumin 5.2 g/dL (3.4-5.0); Alkaline Phosphatase 65 U/L (46-116); Anion Gap 13.3 mmol/L (3-11); BUN 7 mg/dL (7-18); Bilirubin, Total 0.5 mg/dL (0.2-1.0); CO2 25.7 mmol/L (21.0-32.0); Chloride 99 mmol/L (98-107); Glucose 121 mg/dL (74-106); Lipase 48 U/L (16-77); Magnesium 1.9 mg/dL (1.8-2.4); Sodium 138 mmol/L (136-145); Total Protein 8.7 g/dL (6.4-8.2); Troponin I < 50 ng/L (< or =60)
[2024-05-04 11:08] LABS: ETHANOL BLOOD < 3.0 mg/dL (<10)
[2024-05-04 11:09] LABS: Potassium 2.8 mmol/L (3.5-5.1)
[2024-05-04 11:29] LABS: HCG Qual (Serum) Negative
[2024-05-04] MEDS: Nicotine 21 MG/24 HR PATCH TD (11:59)
[2024-05-04] MEDS: Potassium Chloride 20 MEQ TABCR 40 MEQ PO (12:00)
[2024-05-04] MEDS: POTASSIUM CHLORIDE 20 MEQ/100 ML BAG 50 MEQ (12:01)
== END 2024-05-04 13:26 | disposition home or self-care (01) ==
PROVIDERS: Emergency Provider Emergency Medicine
DX: R11.2 Nausea with vomiting, unspecified (principal); R19.7 Diarrhea, unspecified; F10.239 Alcohol dependence with withdrawal, unspecified; I10 Essential (primary) hypertension; E87.6 Hypokalemia
CPT/HCPCS: 80053; 83690; 93005; 96361; 96374; 96376; 99284; 80320; 83735; 84484; 84703; 85025; 93010; 99283; J1790; J3480

== ENCOUNTER 2024-07-23 12:12 | Emergency (ER) | payer MEDICAID, SELFPAY ==
[2024-07-23 12:14] VITALS: BP 144/90; PULSE 100; RESP 16; TEMP 36.6; O2SAT 98
[2024-07-23] MEDS: Lidocaine 1% Pres-Free 5 ML VIAL (12:44)
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
== END 2024-07-23 13:40 | disposition home or self-care (01) ==
PROVIDERS: Emergency Provider Emergency Medicine
DX: S51.812A Laceration without foreign body of left forearm, initial encounter (principal); F17.290 Nicotine dependence, other tobacco product, uncomplicated; W27.8XXA Contact with other nonpowered hand tool, initial encounter; Y93.89 Activity, other specified
CPT/HCPCS: 12004; 99283; J2003

== ENCOUNTER 2024-10-28 07:44 | Emergency (ER) | payer MEDICAID, SELFPAY ==
[2024-10-28] VITALS (29 sets, daily range): BP systolic 113–170; BP diastolic 78–105; PULSE 65–98; RESP 9–24; TEMP 36.5–36.7; O2SAT 97–100
--- NOTE | 2024-10-28 08:19 | W.ED.GENAD ---
Discharge Plan Disposition Patient Disposition: Home Condition: Stable Discharge Details Clinical Impression: Hypokalemia, Acute vomiting, Alcohol abuse Primary Care Provider: Unknown,Unknown ED Provider: Rosalva Gomez Home Meds and New Rx's Prescriptions: No Action No Known Home Meds Discharge Instructions Instructions: Hypokalemia Additional Instructions: A referral has been placed to care management to help you establish care with a primary care provider. They will call you to set up your first appointment. Your potassium was very low today. I recommend that you increase your consumption of potassium rich foods such as potatoes, oranges, and bananas. Please drink a bottle of Gatorlyte daily as long as you are vomiting. You may use the Zofran provided for nausea/vomiting. I recommend that you work on decreasing her alcohol consumption. You may reach out to [facility] at [phone] and women's soccer coach. Return to care if you develop episodes of passing out, seizures, uncontrollable vomiting despite Zofran use, blood in stool or vomit, severe abdominal pain, or if you are very worried and need to be rechecked again immediately. Referrals: Care Management [Provider Group] HPI General Date/Time Provider Initiated Documentation: 10/28/24 07:51. HPI Narrative: Holly is a 24 year old female who presents to the emergency department today for evaluation of 3 days of subjective fever/chills, congestion, headache, cough, nausea/vomiting unable to tolerate p.o. fluids for the last 3 days, with generalized abdominal pain. She reports that she initially had 1 episode of diarrhea at the beginning, none since then. Decreased urine output/darkened urine due to decreased intake. Reports symptoms are similar to when she has had methadone withdrawal in the past. Past medical history is significant for cyclic vomiting and anxiety; has been on methadone in the past but stopped approximately 5 months ago. Normal menstrual cycles, currently on period. She admits to heavy ETOH intake, says she has been drinking 1/4-1/2 bottle of vodka daily but stopped when she got sick. Thinks she might have an ulcer. Says she does not have a PCP to follow-up with. Physical exam reassuring. Patient is alert and oriented, no acute distress. Slightly tacky mucous membranes. Clear voice. Normal oropharynx. Easy work of breathing, lungs are clear bilaterally. Normal heart sounds. Abdomen is soft, nondistended, diffusely tender to palpation, normoactive bowel sounds. D/dx includes but is not limited to: EtOH withdrawal, cyclic vomiting, gastroenteritis, viral illness such as COVID-19, pancreatitis. No red flags concerning for acute/surgical abdomen indicating need for emergent diagnostic imaging. I independently interpreted the following tests: CBC, lipase reassuring. CMP notable for hypokalemia, potassium 2.9. EKG reassuring, normal sinus rhythm rate 73, no T wave changes or QT prolongation. While in the emergency department, Holly received IV Zofran with little improvement of symptoms. As she has responded well to droperidol in the past, 1.25 mg IV push given. EKG was performed due to hypokalemia. She did feel significantly better after receiving droperidol, has been able to take p.o. effervescent potassium and is sipping gingerale. VS normalized after antiemetic, blood pressure does remain elevated. This is consistent with previous ED visits within the last 6 months. I did offer setting up care with [facility] coach, but patient declined at this time. She did say that she is intending to decrease her alcohol consumption. Reviewed discharge instructions with patient, including symptomatic management, importance of establishing care with a PCP, alcohol reduction, and red flags indicating need for return to emergency care. A referral was placed to care management for help establishing care with PCP. Contact info for [facility] provided Related Data Home Medications ?Medication ?Instructions ?Recorded ?Confirmed Unknown [No Known Home Meds] 10/28/24 10/28/24 Allergies Allergy/AdvReac Type Severity Reaction Status Date / Time No Known Allergies Allergy Verified 10/28/24 10:51 General Stated Complaint: Nausea/Vomit/Diar FABIÁN: 3 Review of Systems Narrative: see HPI Exam Const General: cooperative, no acute distress and anxious Nutritional Appearance: average body habitus Orientation: alert and oriented x3 HENMT Head: normal to inspection Ears: hearing grossly normal bilaterally Face and sinus: normal facial exam Mouth: oral mucosae normal, oropharynx normal and moist mucous membranes Teeth and gingiva: poor dentition Throat: posterior oropharynx normal Neck Neck: normal visual inspection, full ROM and supple Resp Effort & Inspection: normal respiratory effort and able to speak in complete sentences Auscultation: clear to auscultation bilaterally Cardio Rate: regular rate Rhythm: regular rhythm GI Inspection: normal to inspection Palpation: soft, not firm, no guarding, not rigid and tender (diffuse) Auscultation: normal bowel sounds Skin General skin exam: no rashes or lesions noted Course Vital Signs Vital signs: Vital Signs Temperature 36.7 C 10/28/24 07:58 Pulse 74 10/28/24 07:58 Respiratory Rate 16 10/28/24 07:58 Blood Pressure 170/96 H 10/28/24 07:58 Pulse Oximetry 100 10/28/24 07:58 Temperature 36.7 C 10/28/24 08:02 Temperature Source Temporal Artery Scan 10/28/24 08:02 Pulse 74 10/28/24 08:02 Pulse 91 H 10/28/24 08:13 Respiratory Rate 17 10/28/24 08:13 Respiratory Effort Normal, Non-Labored 10/28/24 08:00 Blood Pressure 170/96 H 10/28/24 07:58 Blood Pressure Position Sitting 10/28/24 07:58 Pulse Oximetry 99 10/28/24 08:13 Oxygen Delivery Method Room Air 10/28/24 08:02 Oxygen Flow Rate 0 10/28/24 07:58 Pain Level 9 10/28/24 08:02 Medical Decision Making Quality:SDOH Health Related Social Needs: No Data to Display PFSH All Active Problems (Updated 10/28/24 @ 10:41 by Rosalva Kirk) Alcohol abuse (Chronic) Acute streptococcal pharyngitis (Acute) Acute vomiting (Acute) Cephalgia (Acute) Myalgia (Acute) Cyclical vomiting with nausea (Acute) Hypokalemia (Acute) Anxiety (Chronic) Medical History Narcotic abuse in remission Anxiety Surgical History No significant past surgical history Social History Smoking/Tobacco Use Status: Current every day Tobacco Type: e-cigarettes Smoking risk assessment performed?: Yes Alcohol Intake: current Alcohol Intake frequency: 3 or more drinks per day Alcohol type: wine and hard liquor Drug use: Daily Substance use type: marijuana and other Details: vapes THC but not daily, states off methadone and clean for 5 months. Housing: apartment Do you feel safe at home: Yes Do you feel safe in your relationship?: Yes History History 1 Para 1 Hx # Term Pregnancies Multiple births Hx # Pregnancies Ectopic pregnancies AB induced Hx Number of Living Children AB spontaneous
[2024-10-28 08:31] LABS: Abs Immature Grans 0.02 10^3/uL (0.0-0.06); Absolute Basophil Count 0.03 10^3/uL (0.0-0.2); Absolute Lymphocyte Count 1.65 10^3/uL (1.2-3.4); Absolute Monocyte Count 0.54 10^3/uL (0.1-0.8); Absolute Neutrophil Count 5.86 10^3/uL (1.2-6.7); Basophils % 0.4 %; HCT 41.7 % (36.0-46.0); HGB 14.8 g/dL (11.2-15.7); Immature Grans % 0.2 %; Lymphocytes % 20.4 %; MCH 30.9 pg (27.0-33.0); MCHC 35.5 % (32.0-36.0); MCV 87 fL (80-95); MPV 9.7 fL (8.0-11.0); Monocytes % 6.7 %; Neutrophils % 72.3 %; Platelet Count 356 10^3/uL (130-400); RBC 4.79 10^6/uL (3.93-5.22); RDW 13.4 % (11.7-14.6); RDW-SD 42.5 fL
[2024-10-28] MEDS: Ondansetron 4 MG/2 ML VIAL IVP (08:43)
--- NOTE | 2024-10-28 08:45 | RT.EKG_ITS ---
APPROVED REPORT Exam: Resting ECG Reason for Exam: K 2.9 Patient Location: E HR:73 bpm ECG Measurements Heart Rate 73 AXIS AK 131 P 37 QRSd 98 QRS 82 QT 407 T 76 QTc 448 Conclusion Sinus rhythm...normal P axis, V-rate 60- 99 Narrow complex normal sinus rhythm at a rate of 73. Normal axis. Intervals within normal limits. N o ST segment abnormalities. T wave flattening in aVL. Appears similar to prior dated earlier this y ear.
[2024-10-28 08:46] LABS: ALT 32 U/L (14-59); AST 26 U/L (15-37); Albumin 4.9 g/dL (3.4-5.0); Alkaline Phosphatase 71 U/L (46-116); Anion Gap 15.1 mmol/L (3-11); BUN 19 mg/dL (7-18); Bilirubin, Total 1.23 mg/dL (0.2-1.0); CO2 23.9 mmol/L (21.0-32.0); CREATININE 0.9 mg/dL (0.55-1.02); Calcium 9.7 mg/dL (8.5-10.1); Chloride 96 mmol/L (98-107); Glucose 118 mg/dL (74-106); Lipase 28 U/L (<78); Magnesium 2.1 mg/dL (1.8-2.4); Sodium 135 mmol/L (136-145); Total Protein 8.7 g/dL (6.4-8.2)
[2024-10-28 08:48] LABS: Potassium 2.9 mmol/L (3.5-5.1)
[2024-10-28] MEDS: Potassium Bicarbonate/Cit AC 25 MEQ TABLET.EFF 50 MEQ PO (10:27)
[2024-10-28] MEDS: Droperidol 5 MG/2 ML VIAL 1.25 MG IVP (10:27)
[2024-10-28] MEDS: Ondansetron O.D.T. 4 MG TABEF, 3 TABS/BTL PO (10:50)
== END 2024-10-28 10:57 | disposition home or self-care (01) ==
PROVIDERS: Emergency Provider Nurse Practitioner Family
DX: E87.6 Hypokalemia (principal); R11.2 Nausea with vomiting, unspecified; F10.10 Alcohol abuse, uncomplicated; I10 Essential (primary) hypertension; F17.290 Nicotine dependence, other tobacco product, uncomplicated
CPT/HCPCS: 36415; 80053; 83690; 87426; 93005; 96374; 96375; 99285; 83735; 85025; 93010; J1790; J2405

== ENCOUNTER 2024-11-05 10:50 | Outpatient (REF) | payer MEDICAID, SELFPAY ==
[2024-11-05 16:03] LABS: Anion Gap 10.6 mmol/L (3-11); BUN 9 mg/dL (7-18); CO2 29.4 mmol/L (21.0-32.0); CREATININE 1.1 mg/dL (0.55-1.02); Calcium 10.1 mg/dL (8.5-10.1); Chloride 101 mmol/L (98-107); Estimated GFR 72.86 (mL/min/1.73m2); Folate > 20.0 ng/mL (8.6-20.0); Glucose 127 mg/dL (74-106); Magnesium 2.5 mg/dL (1.8-2.4); Sodium 141 mmol/L (136-145); Vitamin B12 540 pg/mL (193-986)
[2024-11-05 16:10] LABS: Potassium 2.8 mmol/L (3.5-5.1)
== END 2024-11-05 10:51 | disposition home or self-care (01) ==
LOC: NCHCN 10:50
PROVIDERS: Visit Provider Family Medicine
DX: R11.2 Nausea with vomiting, unspecified (principal); F10.10 Alcohol abuse, uncomplicated; E87.6 Hypokalemia
CPT/HCPCS: 80048; 82607; 82746; 83735

== ENCOUNTER 2024-11-25 16:55 | Outpatient (REF) | payer MEDICAID, SELFPAY ==
[2024-11-25 16:54] LABS: Anion Gap 6.8 mmol/L (3-11); BUN 11 mg/dL (7-18); CO2 28.2 mmol/L (21.0-32.0); CREATININE 0.7 mg/dL (0.55-1.02); Calcium 9.3 mg/dL (8.5-10.1); Chloride 107 mmol/L (98-107); Estimated GFR 125.33 (mL/min/1.73m2); Glucose 103 mg/dL (74-106); Potassium 3.9 mmol/L (3.5-5.1); Sodium 142 mmol/L (136-145)
== END 2024-11-25 16:56 | disposition home or self-care (01) ==
LOC: NCHCN 16:55
PROVIDERS: Visit Provider Family Medicine
DX: R11.2 Nausea with vomiting, unspecified (principal); F10.10 Alcohol abuse, uncomplicated; E87.6 Hypokalemia
CPT/HCPCS: 80048

== ENCOUNTER 2025-03-09 21:54 | Emergency (ER) | payer MEDICAID, SELFPAY ==
[2025-03-09 21:58] VITALS: BP 127/92; PULSE 106; RESP 16; TEMP 36.9; O2SAT 98
--- NOTE | 2025-03-09 23:17 | W.ED.GENAD ---
Discharge Plan Disposition Patient Disposition: Home Condition: Good Discharge Details Clinical Impression: Furuncle of extremity Primary Care Provider: Unknown,Unknown ED Provider: Daniel Patel Home Meds and New Rx's Prescriptions: New doxycycline hyclate 100 mg capsule 100 mg PO BID Qty: 20 0RF Discharge Instructions Instructions: Boil, Adult ED Additional Instructions: Wash the area 2-3 times a day with soap and water. Apply warm compresses throughout the day for about 15 minutes at a time to help improve the swelling and promote drainage. Take 1 oral doxycycline tablet every 12 hours for the next 10 days. You can apply the topical LMX ointment about every 8 hours if needed for pain relief. Contact and follow-up with your women's health care provider to consider incision and drainage if the site becomes larger and can accommodate a specific type of treatment called a Word catheter. You can always return to the ER for any new concerns or sudden changes in your health which you feel require emergency medical attention. Discharge Data Discharge Physician: Daniel Patel [facility] General Date/Time Provider Initiated Documentation: 03/09/25 22:18. HPI Narrative: The patient is a 24-year-old female, with a noncontributory past medical history, who presents the emergency department stating complaining of a small focal area of redness at the bottom of her left labia which she first noticed today. The patient reports that it is painful when she touches it, but otherwise does not seem to bother her. The patient denies having any discharge from the area. The patient denies having any fevers or chills. The patient tells me that her mother has a history of labial cysts around her vagina, and she was concerned that she had developed one. 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: 4 Exam External Female Exam: normal external appearance and other (0.5 cm furuncle at the inferior left labial margin) Skin General skin exam: no rashes or lesions noted and turgor normal Neuro General: patient alert, patient awake, patient oriented x3, moves all extremities, normal light touch, pain and propioception and no focal motor deficits Course Vital Signs Vital signs: Vital Signs Temperature 36.9 C 03/09/25 21:58 Pulse 106 H 03/09/25 21:58 Respiratory Rate 16 03/09/25 21:58 Blood Pressure 127/92 H 03/09/25 21:58 Pulse Oximetry 98 03/09/25 21:58 Temperature 36.9 C 03/09/25 21:58 Pulse 106 H 03/09/25 21:58 Respiratory Rate 16 03/09/25 21:58 Blood Pressure 127/92 H 03/09/25 21:58 Pulse Oximetry 98 03/09/25 21:58 Pain Level 4 03/09/25 21:58 Medical Decision Making The patient was seen and examined. I am not entirely sure that this represents a Bartholin glands inclusion cyst or abscess. This may simply represent a furuncle and the external skin near the perineum. A quick peek with the ultrasound reveals a subcentimeter cavity which appears to have simple fluid within it, making the diagnosis of cyst more likely. The plan will be to do warm compresses, oral doxycycline, and topical LMX cream to help alleviate discomfort. The patient can be seen as an outpatient by her women's health provider to have the area I&D if necessary, but it is so small now that the area would not accommodate a Word catheter. Quality:SDOH Health Related Social Needs: No Data to Display PFSH All Active Problems (Updated 03/09/25 @ 23:24 by Daniel Patel MD) Furuncle of extremity (Acute) Acute streptococcal pharyngitis (Acute) Acute vomiting (Acute) Cephalgia (Acute) Myalgia (Acute) Cyclical vomiting with nausea (Acute) Hypokalemia (Acute) Anxiety (Chronic) Medical History Narcotic abuse in remission Anxiety Surgical History No significant past surgical history Social History Smoking/Tobacco Use Status: Current every day Tobacco Type: e-cigarettes Smoking risk assessment performed?: Yes Alcohol Intake: current Alcohol Intake frequency: 3 or more drinks per day Alcohol type: wine and hard liquor Drug use: Daily Substance use type: marijuana and other Details: vapes THC but not daily, states off methadone and clean for 5 months. Housing: apartment Do you feel safe at home: Yes Do you feel safe in your relationship?: Yes History History 1 Para 1 Hx # Term Pregnancies Multiple births Hx # Pregnancies Ectopic pregnancies AB induced Hx Number of Living Children AB spontaneous PAWSS Have you Been Recently Intoxicated or Drunk Within the Last 30 days?: Yes Have you Ever Experienced Previous Episodes of Alcohol Withdrawal?: No Have you ever Experienced Withdrawal Seizures?: No Have you ever Experienced Delirium Tremens(DT)s?: No Have you ever undergone Alcohol Rehabilitation Treatment (i.e, inpt ot outpatient treatment programs)?: No Have you ever Experienced Blackouts?: No Have you ever Combined Alcohol with other Downers within the last 90 days?: No Have you ever Combined Alcohol with any other Substance of Abuse during the last 90 days?: No Positive Blood Alcohol level on Presentation? [PCS.BAL]: No Evidence of Increased Autonomic Activity (i.e. HR>120, tremor, sweating, agitation, nausea)?: No Result: 1
[2025-03-09] MEDS: Lidocaine 4% Cream 5 GM TUBE TP (23:24)
[2025-03-09] MEDS: Doxycycline Hyclate 100 MG CAP PO (23:24)
== END 2025-03-09 23:40 | disposition home or self-care (01) ==
PROVIDERS: Emergency Provider Emergency Medicine Emergency Medical Services
DX: L02.828 Furuncle of other sites (principal); F17.210 Nicotine dependence, cigarettes, uncomplicated
CPT/HCPCS: 99283

== ENCOUNTER 2025-06-12 12:42 | Emergency (ER) | payer MEDICAID, SELFPAY ==
[2025-06-12 12:50] VITALS: BP 158/102; PULSE 92; RESP 14; TEMP 36.9; O2SAT 99
--- NOTE | 2025-06-12 13:35 | ED.GENADUL_ITS ---
Discharge Plan Discharge Details Chief Complaint: GenMedical Primary Care Provider: Unknown,Unknown ED Provider: Carley Nino Home Meds and New Rx's Prescriptions: No Action No Known Home Meds HPI General Date/Time Provider Initiated Documentation: 06/12/25 13:24 . Limitations to Documentation: no limitations . Information obtained by: patient, RN notes reviewed and old records reviewed . History of Present Illness 24 year old F presents to the emergency department with the chief complaint of Nausea, vomiting, epigastric pain, described as severe and similar to prior episodes, and is localized to the abdomen. Patient reports no radiation. Patient started experiencing this day(s) (For) and it has been constant. No relieving factors improve symptom(s), No exacerbating factors reported . Patient notes loss of appetite, malaise and nausea/vomiting; denies chest pain, cough, fever/chills, rash and shortness of breath. Patient did receive the following treatments prior to arrival, none Related Data Home Medications ?Medication ?Instructions ?Recorded ?Confirmed Unknown [No Known Home Meds] 06/12/25 0 06/12/25 Allergies Allergy/AdvReac Type Severity Reaction Status Date / Time No Known Allergies Allergy Verified 06/12/25 12:52 General Stated Complaint: GenMedical FABIÁN: 3 Review of Systems Constitutional Constitutional: Reports as per HPI, Denies chills, Denies fatigue, Denies fever(s) and Denies headache(s) ENT Ears, Nose, Mouth, and Throat: Denies headache(s) Cardiovascular Cardiovascular: Reports as per HPI, Denies chest pain and Denies dyspnea Respiratory Respiratory: Reports as per HPI, Denies cough and Denies dyspnea Gastrointestinal Gastrointestinal: Reports as per HPI Musculoskeletal Musculoskeletal: Reports as per HPI and Denies back pain Integumentary/Breasts Skin/Breast: Reports as per HPI and Denies rash Neurologic Neurologic: Reports as per HPI and Denies headache(s) Endocrine Endocrine: Denies fatigue Exam Const General: no acute distress, well developed, disheveled, intoxicated appearing and lethargic Nutritional Appearance: average body habitus Orientation: alert and awake [facility] Head: normal to inspection Mouth: moist mucous membranes Resp Effort & Inspection: normal respiratory effort, able to speak in complete sentences and no respiratory distress Auscultation: clear to auscultation bilaterally, no rales, no rhonchi and no wheezes Cardio Rate: regular rate Rhythm: regular rhythm Heart Sounds: S1 normal and S2 normal GI Inspection: normal to inspection Palpation: soft, not firm, no guarding, tender in the epigastrum; not at McBurney's point, Cox's sign negative and with no rebound tenderness and No ascites Auscultation: normal bowel sounds Back/Spine/Pelvis Back: no CVA tenderness Skin General skin exam: no rashes or lesions noted Trauma: no lacerations or abrasions Psych Appearance: disheveled Mood: anxious mood Affect: blunted Attitude: guarded, avoids eye contact and refuses to answer Thought Content: suicidality Insight: fair Judgment: fair Course Vital Signs Vital signs: Vital Signs Temperature 36.9 C 06/12/25 12:50 Pulse 92 H 06/12/25 12:50 Respiratory Rate 14 06/12/25 12:50 Blood Pressure 158/102 H 06/12/25 12:50 Pulse Oximetry 99 06/12/25 12:50 Temperature 36.9 C 06/12/25 12:50 Temperature Source Temporal Artery Scan 06/12/25 12:50 Pulse 92 H 06/12/25 12:50 Respiratory Rate 14 06/12/25 12:50 Respiratory Effort Normal, Non-Labored 06/12/25 13:20 Respiratory Depth Normal 06/12/25 13:20 Respiratory Pattern Normal 06/12/25 13:20 Blood Pressure 158/102 H 06/12/25 12:50 Blood Pressure Position Sitting 06/12/25 12:50 Pulse Oximetry 99 06/12/25 12:50 Oxygen Delivery Method Room Air 06/12/25 12:50 Oxygen Flow Rate 0 06/12/25 12:50 Medical Decision Making Patient is a 24-year-old female presenting today with chief complaint of nausea and vomiting for the past 4 days. States this been fairly consistent she had been having difficulty sleeping. On chart review, patient has had issues with alcohol and substance use in the past and has presented during times of withdrawal. She denies any recent usage of alcohol, substance use, marijuana, or withdrawal from any of these. Her last menstrual period was 3 months ago which she states that this is typical for her and that she is often irregular. States she been having some epigastric discomfort. No blood in her vomit. No change in urinary habits. No fevers. No known sick contacts. No previous abdominal surgeries. Also reports that she has been having increased anxiety but denies any suicidal ideation. On exam, patient appears inebriated or intoxicated. She quite lethargic and has fairly small pupils. I have to keep arousing her to answer all of my questions. She is hemodynamically stable and does not appear frankly ill but rather concerned that she may be under the influence. Lungs are clear, normal cardiac exam abdominal exam concerning for epigastric discomfort. She is not linking her pain with any type of p.o. intake. Rather, this seems to be more associated with her acute on chronic nausea and vomiting. She has found that hot showers are very beneficial for her discomfort. Will try some capsaicin cream to help with her pain. She did receive Zofran prior to arrival and her nausea does seem to be more well-controlled. Concerned about electrolyte derangements given her continued vomiting. Will obtain baseline labs. At this point, her exam is not consistent with a surgical abdomen, no history or physical exam to suggest acute cholecystitis, appendicitis. Given her history of alcohol abuse, I did consider pancreatitis and will obtain a lipase. Will also obtain alcohol and UDS given the patient's apparent inebriated state although she reports no recent use, associates with her being fatigued. Labs reviewed. No leukocytosis. Stable H&H. CMP concerning for low potassium of 3.1, we will try to replenish this orally. She does likely she has had a chronic hypokalemia. Anion gap is elevated at 15.4, not overly surprising given the patient's dehydrated state with her emesis. Magnesium is within normal limits. Patient does have elevated LFTs, will add on a hepatitis panel as this does appear to be more acute. Lipase within normal limits. Urine showing evidence to suggest ketonuria, dehydration. UDS is positive for cocaine and THC which fits with the patient's clinical picture. She does have issues with hypertension looking back, this likely associated with cocaine, particular given her age. I remain concerned for cannabinoid induced hyperemesis with her repeat visits to the emergency department, description of the discomfort as well as continued emesis. The patient was treated with topical capsaicin and did have some improvement in her discomfort and did show evidence here of wanting to compulsively shower. Again, no evidence at this time for ACS, sepsis, other life-threatening pathology. At the end of my shift, care transitioned to oncoming clinician with reevaluation pending after second liter of fluids have been completed. I am hoping that with the new face, patient may be more willing to discuss her substance use and be opening to discuss potential avenues to be able to get some help for this. When I first evaluated her, she kept falling asleep and needed to be woken, she did get quite short with me and seems to be guarded in my presence and I am hoping that a second set of eyes will allow her to be more open, particularly she is now feeling much improved. PFSH All Active Problems (Updated 04/09/25 @ 00:03 by SWATI SERRANO) Acute streptococcal pharyngitis (Acute) Acute vomiting (Acute) Cephalgia (Acute) Myalgia (Acute) Cyclical vomiting with nausea (Acute) Hypokalemia (Acute) Anxiety (Chronic) Medical History Narcotic abuse in remission Anxiety Surgical History No significant past surgical history Social History Smoking/Tobacco Use Status: Current every day Tobacco Type: e-cigarettes Smoking risk assessment performed?: Yes Alcohol Intake: current Alcohol Intake frequency: 3 or more drinks per day Alcohol type: wine and hard liquor Drug use: Daily Substance use type: marijuana and other Details: vapes THC but not daily, states off methadone and clean for 5 months. Housing: apartment Do you feel safe at home: Yes Do you feel safe in your relationship?: Yes History History 1 Para 1 Hx # Term Pregnancies Multiple births Hx # Pregnancies Ectopic pregnancies AB induced Hx Number of Living Children AB spontaneous
[2025-06-12 13:41] LABS: Abs Immature Grans 0.04 10^3/uL (0.0-0.06); HCT 42.1 % (36.0-46.0); HGB 14.8 g/dL (11.2-15.7); Immature Grans % 0.4 %; MCH 31.5 pg (27.0-33.0); MCHC 35.2 % (32.0-36.0); MCV 90 fL (80-95); MPV 9.8 fL (8.0-11.0); Platelet Count 419 10^3/uL (130-400); RBC 4.70 10^6/uL (3.93-5.22); RDW 12.8 % (11.7-14.6); RDW-SD 42.2 fL; WBC 9.51 10^3/uL (4.4-10.8)
[2025-06-12 13:57] LABS: Lipase 28 U/L (<78)
[2025-06-12] MEDS: Normal Saline 1,000 ML 1000 ML IV ×2 (14:00→15:40)
[2025-06-12] MEDS: Pantoprazole 40 MG VIAL IVP (14:00)
[2025-06-12 14:03] VITALS: BP 172/113; PULSE 67; RESP 20; O2SAT 100
[2025-06-12 14:03] LABS: ALT 91 U/L (14-59); AST 56 U/L (15-37); Albumin 5.2 g/dL (3.4-5.0); Alkaline Phosphatase 91 U/L (46-116); Anion Gap 15.4 mmol/L (3-11); BUN 16 mg/dL (7-18); Bilirubin, Total 1.5 mg/dL (0.2-1.0); CO2 24.6 mmol/L (21.0-32.0); Calcium 10.8 mg/dL (8.5-10.1); Chloride 96 mmol/L (98-107); Estimated GFR 81.69 (mL/min/1.73m2); Glucose 147 mg/dL (74-106); Magnesium 1.9 mg/dL (1.8-2.4); Potassium 3.1 mmol/L (3.5-5.1); Sodium 136 mmol/L (136-145); Total Protein 9.4 g/dL (6.4-8.2)
[2025-06-12 14:44] LABS: Glucose Negative (Negative)
[2025-06-12 14:52] LABS: C & S Indicated? No; RBC 0-2 HPF (0-2); WBC 0-2 HPF (0-5)
[2025-06-12] MEDS: Potassium Chloride 20 MEQ TABCR 40 MEQ PO (14:56)
[2025-06-12 14:57] LABS: Cannabinoids THC Positive (Negative); METHADONE URINE SCREEN Negative (Negative)
[2025-06-12 16:12] VITALS: BP 184/116; PULSE 84; RESP 20; O2SAT 98
[2025-06-12 16:41] VITALS: BP 174/107; PULSE 75; TEMP 36.8; O2SAT 100
[2025-06-12 22:57] LABS: Hepatitis A Antibody IgM Negative (Negative); Hepatitis C Ab w Rflx HCV PCR Negative (Negative)
== END 2025-06-12 17:06 | disposition home or self-care (01) ==
PROVIDERS: Physician Assistant; Emergency Provider Physician Assistant
DX: F19.10 Other psychoactive substance abuse, uncomplicated; R11.2 Nausea with vomiting, unspecified; R10.13 Epigastric pain; I10 Essential (primary) hypertension; F41.9 Anxiety disorder, unspecified
CPT/HCPCS: 99284 ×2; 96374; 81025; 80053; 80307; 83690; 86704; 86709; 86803; 87340; 96361; 80320; 81003; 81015; 83735; 85025; J2470

== ENCOUNTER 2025-09-18 11:25 | Emergency (ER) | payer MEDICAID, SELFPAY ==
[2025-09-18 11:27] VITALS: BP 129/77; PULSE 112; RESP 20; TEMP 36.6; O2SAT 98
[2025-09-18] MEDS: Lidocaine/Epinephri/Tetracaine Topical Gel 3 ML TP (11:43)
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
[2025-09-18 12:47] VITALS: BP 122/74; PULSE 89; RESP 16; O2SAT 100
== END 2025-09-18 12:48 | disposition home or self-care (01) ==
PROVIDERS: Emergency Provider Emergency Medicine
DX: S61.214A Laceration without foreign body of right ring finger without damage to nail, initial encounter (principal); S61.216A Laceration without foreign body of right little finger without damage to nail, initial encounter; W26.0XXA Contact with knife, initial encounter
CPT/HCPCS: 99282 ×2